=== PATIENT | female | born 1930 | race Caucasian/White ===

== ENCOUNTER → 2016-10-28 | Outpatient (CLI) | payer OTHER, MEDICAID ==
[2014-09-18 16:10] VITALS: BP 156/66
--- NOTE | 2016-10-28 16:42 | RAD ---
Barium swallow Indication: Dysphagia. Difficulty swallowing. Technique: Dynamic fluoroscopic imaging obtained during the swallowing of thin liquid barium. Findings: There was laryngeal penetration during dereck pharyngeal phase of swallowing. No edin trache al aspiration seen. Pharynx appears relatively normal, though positioning is limited due to severe kyphosis of the thora cic spine. The esophagus is dilated and tortuous with areas of narrowing in the lower thoracic esophagus and po oling of barium. The patient had difficulty tolerating the exam and was feeling nauseated and unable to continue. There is a large hiatal hernia with the majority of the fundus of the stomach in the c hest. Impression: 1. Limited study with laryngeal penetration. Speech pathology followup recommended to evaluate for p ossible clinical signs of aspiration. 2. Reflux of contrast into the nasopharynx also suggesting difficulty swallowing. Dereck pharyngeal phy sical/visual examination is recommended to exclude pharyngeal lesion 3. Tortuous thoracic esophagus and large hiatal hernia with reflux of contents into the tortuous dil ated thoracic esophagus 4. Barium pooled and series points in the lower thoracic esophagus, and areas of stricturing are sug gested. Dysfunctional esophageal motility is noted. Again, evaluation is limited, but stricture in t he lower esophagus is certainly possible. Underlying mucosal lesion is not excluded. Consider endosc opic followup. Reported By:
== END ==
LOC: RAD 10:36
PROVIDERS: ATTEND Internal Medicine Gastroenterology
DX: R13.11 Dysphagia, oral phase (principal)
CPT/HCPCS: 70370

== ENCOUNTER 2016-11-26 11:55 | Day surgery (SDC) | payer OTHER, MEDICAID ==
[2016-11-26] MEDS ORDERED: D5 LR 1000 ML 1,000 ML IV ONE (12:02)
[2016-11-26] MEDS ORDERED: DIPRIVAN VIAL 20 ML ONE (13:00)
[2016-11-26 15:09] VITALS: BP 122/61
== END 2016-11-26 13:45 ==
LOC: SURG1 11:55
PROVIDERS: ATTEND Internal Medicine Gastroenterology
PROC: 0DJ08ZZ Inspection of Upper Intestinal Tract, Via Natural or Artificial Opening Endoscopic (ICD-10-PCS; principal; 2016-11-26 15:45)
PROC: 0D757ZZ Dilation of Esophagus, Via Natural or Artificial Opening (ICD-10-PCS; principal; 2016-11-26 15:45)
PROC: 0DB68ZX Excision of Stomach, Via Natural or Artificial Opening Endoscopic, Diagnostic (ICD-10-PCS; principal; 2016-11-26 15:45)
DX: R13.19 Other dysphagia (principal); K21.9 Gastro-esophageal reflux disease without esophagitis; R93.3 Abnormal findings on diagnostic imaging of other parts of digestive tract; K22.4 Dyskinesia of esophagus; K22.2 Esophageal obstruction; K44.9 Diaphragmatic hernia without obstruction or gangrene; K29.60 Other gastritis without bleeding
CPT/HCPCS: 99100; A4217; J3490; J7120

== ENCOUNTER → 2017-04-14 | Outpatient (CLI) | payer OTHER, MEDICAID ==
[2016-11-26 12:10] VITALS: BP 147/63
--- NOTE | 2017-04-14 16:42 | VAS ---
HISTORY: Pain and edema in the left ankle Study: Left lower extremity venous vascular examination: Multiplanar ultrasonographic examination de ep venous system of the left lower extremity was performed using color and grayscale imaging. Augment ation and compression techniques utilized. Comparison: 09/15/2014 Findings: The common femoral vein, superficial femoral vein and popliteal vein demonstrate normal flow and easy compressibility. Augmentation is noted. Vascular flow was phasic. IMPRESSION: 1. No evidence of deep venous thrombosis involving the left lower extremity. 2. The deep venous thrombosis seen on the prior examination has resolved. Reported By:
== END ==
LOC: RAD 13:36
PROVIDERS: ATTEND Obstetrics & Gynecology Obstetrics
DX: M79.605 Pain in left leg (principal); M25.572 Pain in left ankle and joints of left foot; M79.89 Other specified soft tissue disorders
CPT/HCPCS: 93971

== ENCOUNTER 2018-07-17 08:10 | Inpatient (IN) ==
[~2018-07-17 08:10] MED LIST: ZOFRAN INJ 4 MG VIAL ONE
[2018-07-17] MEDS ORDERED: PEPCID 20 MG IV PREMIX* 20 MG/50 ML BAG IV SCH (09:00)
[2018-07-17] MEDS ORDERED: ZOFRAN INJ 4 MG VIAL IVP PRN (09:00)
[2018-07-17] MEDS ORDERED: NS 100 ML IV 100 ML IV ONE (09:16)
[2018-07-17] MEDS ORDERED: NS 1000 ML 1,000 ML ONE (09:16)
[2018-07-17] MEDS ORDERED: PEPCID 20 MG IV PREMIX* 20 MG/50 ML BAG IV ONE (09:17)
[2018-07-17] MEDS ORDERED: ZOFRAN INJ 4 MG VIAL ONE (09:21)
[2018-07-17] MEDS ORDERED: PROTONIX INJ 40 MG VIAL ONE (09:22)
[2018-07-17] MEDS ORDERED: INVANZ INJ 1 GM VIAL ONE (09:23)
[2018-07-17] MEDS: NS 1000 ML 1,000 ML IV SCH ×2 (09:35→22:03)
[2018-07-17] MEDS: PROTONIX INJ 40 MG VIAL IVP SCH (09:35)
[2018-07-17] MEDS: INVANZ INJ 1 GM VIAL 1 GM in NS 100 ML IV + SPIKE MINIBAG* 100 ML IV SCH (09:40)
[2018-07-17 10:14] LABS: ALBUMIN 2.7 g/dL (3.4-5.0); CALCIUM 8.9 mg/dL (8.5-10.1); CARBON DIOXIDE 22.1 mmol/L (21-32); COR CA(FOR HYPOALB) 9.9 mg/dL (8.5-10.1); CREATININE 1.77 mg/dL (0.55-1.02)
[2018-07-17 10:15] LABS: BASOPHILS # (AUTO) 0.1 X10^3/uL (0.0-0.1); BASOPHILS % (AUTO) 0.8 % (0.2-1.0); EOSINOPHILS % (AUTO) 0.3 % (0.9-2.9); HEMATOCRIT 28.1 % (36.0-47.0); HEMOGLOBIN 8.9 g/dL (12.0-16.0); LYMPHOCYTES # (AUTO) 1.8 X10^3/uL (1.3-2.9); MEAN CORPUSCULAR HGB CONC 31.9 g/dL (33.0-35.0); MEAN CORPUSCULAR VOLUME 94.3 fL (80.0-100.0); MEAN PLATELET VOLUME 9.2 fL (7.4-11.0); MONOCYTES # (AUTO) 0.4 x10^3/uL (0.3-0.8); NEUTROPHILS # (AUTO) 9.6 x10^3/uL (2.2-4.8); NEUTROPHILS % (AUTO) 80.9 % (42.0-75.0); PLATELET COUNT 597 X10^3/uL (150.0-450.0); RED BLOOD COUNT 2.98 X10^6/uL (3.5-5.4); RED CELL DISTRIBUTION WIDTH 15.1 % (11.6-16.5); WHITE BLOOD COUNT 11.9 X10^3/uL (3.6-10.0)
[2018-07-17 10:17] LABS: LACTIC ACID 3.9 mmol/L (0.4-2.0)
[2018-07-17 10:36] LABS: CREATINE KINASE MB 1.2 ng/mL (0-4.0); TOTAL PROTEIN 6.4 g/dL (6.4-8.2); TROPONIN I 0.03 ng/mL (0-1.5)
[2018-07-17] MEDS: MORPHINE SULFATE INJ 2 MG INJ IVP PRN (11:20)
[2018-07-17 11:27] LABS: BILIRUBIN,URINE NEGATIVE (NEGATIVE); BLOOD/HEMOGLOBIN,URINE 2+ (NEGATIVE); GLUCOSE, URINE NEGATIVE (NEGATIVE); KETONES,URINE 3+ (NEGATIVE); LEUKOCYTE ESTERASE ,URINE 1+ (NEGATIVE); NITRITES,URINE NEGATIVE (NEGATIVE); PROTEIN,URINE 2+ (NEGATIVE); UROBILINOGEN,URINE NORMAL (NORMAL)
[2018-07-17 11:43] LABS: APPEARANCE,URINE HAZY (CLEAR); COLOR,URINE YELLOW (YELLOW)
[2018-07-17 11:44] LABS: SQUAMOUS EPITHELIAL CELL,UR FEW /HPF (NEGATIVE)
[2018-07-17 11:45] VITALS: BMI 20.1
[2018-07-17 11:45] LABS: BACTERIA,URINE TRACE /HPF (NEGATIVE); TRANSITIONAL EPI CELLS,URINE FEW /HPF (NEGATIVE)
[2018-07-17] MEDS ORDERED: XANAX ONE (13:01)
[2018-07-17] MEDS: XANAX PO PRN (13:03)
[2018-07-17] MEDS ORDERED: VALIUM PO ONE (14:44)
[2018-07-17] MEDS ORDERED: HALDOL INJ IM PRN (14:50)
[2018-07-17] MEDS ORDERED: VALIUM ONE (15:04)
--- NOTE | 2018-07-17 15:38 | RAD ---
HISTORY: Coughing. Study: Single-view chest Comparison: 02/28/2018. Findings: There are spine stimulating electrodes present in the mid thoracic spinal canal region. Trachea is midline. Heart size is normal. 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 A large fixed hiatal hernia is present. The lungs are clear. Osseous structures are intact. IMPRESSION: No acute cardiopulmonary disease. Reported By:
--- NOTE | 2018-07-17 15:44 | RAD ---
HISTORY: Abdominal pain, renal disease Study: KUB Comparison: 03/27/2014. Findings: A spine stimulating generator is present involving the right upper gluteal region with electrodes extending into the lower thoracic spinal canal region. There is severe mid lumbar scoliosis convex to the patient's left. Severe multilevel degenerative disc disease is present with disc space narrowing and vacuum discs and marginal spondylosis at multiple levels. There are surgical clips from cholecystectomy. The bowel gas pattern is nonspecific. Calcifications are present overlying the left kidney region which may represent kidney stones or may be vascular. There is an amorphous calcification present in the right gluteal region unchanged from prior studies. This may be due to prior trauma. There is a 7.3 cm rectal fecal impaction. IMPRESSION: No evidence of bowel obstruction. 7.3 cm rectal fecal impaction. Calcifications present overlying the left kidney. This may be vascular or may represent renal stones on the left. Multiple postsurgical changes. Reported By:
[2018-07-17] MEDS: HALDOL INJ IM PRN (16:16)
[2018-07-17 17:30] LABS: HEMATOCRIT 22.9 % (36.0-47.0); HEMOGLOBIN 7.7 g/dL (12.0-16.0)
[2018-07-17] MEDS: MILK OF MAGNESIA PO SCH (22:03)
[2018-07-17] MEDS: COLACE CAP 100 MG PO SCH (22:03)
[2018-07-18] MEDS: HALDOL INJ IM PRN (01:04)
[2018-07-18 05:41] LABS: ALANINE AMINOTRANSFERASE 18 Units/L (12-78); ALBUMIN 2.3 g/dL (3.4-5.0); ALKALINE PHOSPHATASE 50 Units/L (46-116); ASPARTATE AMINO TRANSFERASE 32 Units/L (15-37); BLOOD UREA NITROGEN 67 mg/dL (7-18); CALCIUM 8.2 mg/dL (8.5-10.1); CARBON DIOXIDE 20.4 mmol/L (21-32); CHLORIDE 112 mmol/L (98-107); COR CA(FOR HYPOALB) 9.6 mg/dL (8.5-10.1); CREATININE 1.75 mg/dL (0.55-1.02); SODIUM 143 mmol/L (136-145); TOTAL PROTEIN 5.1 g/dL (6.4-8.2); eGFR NON BLACK RACES 29 (>60)
[2018-07-18 05:48] LABS: BASOPHILS # (AUTO) 0.1 X10^3/uL (0.0-0.1); BASOPHILS % (AUTO) 0.6 % (0.2-1.0); EOSINOPHILS % (AUTO) 0.2 % (0.9-2.9); LYMPHOCYTES # (AUTO) 1.6 X10^3/uL (1.3-2.9); LYMPHOCYTES % (AUTO) 13.7 % (21.0-51.0); MEAN CORPUSCULAR HEMOGLOBIN 30.3 pg (27.0-34.0); MEAN CORPUSCULAR HGB CONC 32.6 g/dL (33.0-35.0); MEAN CORPUSCULAR VOLUME 92.8 fL (80.0-100.0); MEAN PLATELET VOLUME 9.3 fL (7.4-11.0); MONOCYTES # (AUTO) 0.5 x10^3/uL (0.3-0.8); MONOCYTES % (AUTO) 4.5 % (0.0-13.0); NEUTROPHILS # (AUTO) 9.6 x10^3/uL (2.2-4.8); PLATELET COUNT 355 X10^3/uL (150.0-450.0); RED BLOOD COUNT 1.97 X10^6/uL (3.5-5.4); RED CELL DISTRIBUTION WIDTH 14.8 % (11.6-16.5); WHITE BLOOD COUNT 11.8 X10^3/uL (3.6-10.0)
[2018-07-18 05:56] LABS: HEMATOCRIT 18.3 % (36.0-47.0)
[2018-07-18] MEDS: MORPHINE SULFATE INJ 2 MG INJ IVP PRN (06:45)
--- NOTE | 2018-07-18 08:51 | DR.H&P ---
H&P - History & Physical for Day of: H&P Date: 07/17/18 - Chief Complaint Chief Complaint: COFFEE GROUND EMESIS, BLOOD IN STOOL, NAUSEA, UTI, WEAKNESS - History of Present Illness History of Present Illness: IS A 88 YEAR OLD PATIENT OF OURS WHO IS A RESIDENT OF [facility] / [facility]. SHE PRESENTED A DIRECT ADMISSION FOR COMPLAINTS OF COFFEE GROUND EMESIS, BLOOD IN STOOL, NAUSEA, AND A URINARY TRACT INFECTION. A URINE SAMPLE WAS OBTAINED ON 07/11/18 AND REVEALED GROWTH OF E.COLI. SHE WAS STARTED ON BACTRIM, BUT HAS BEEN UNABLE TO KEEP IT DOWN WITHOUT VOMITING. ON ARRIVAL, VITALS WERE 98.3-100-20-97%-123/58. LABS WERE OBTAINED. ABNORMAL LAB VALUES INCLUDE THE FOLLOWING: WBC 11.9, RBC 2.98, HGB 8.9, HCT 28.1, PLT COUNT 597, POTASSIUM 5.7, BUN 43, CREATININE 1.77, GLUCOSE 163, LACTIC ACID 3.9, ALBUMIN 2.7. INFLUENZA NEGATIVE. A URINALYSIS WAS REPEATED AND REVEALED WBC 5-10, RBC 5-10, LEUKOCYTES 1+, BACTERIA TRACE. URINE, BLOOD, AND SPUTUM CULTURES OBTAINED. A CHEST XRAY WAS OBTAINED AND REVEALED: NO CARDIOPULMONARY DISEASE. A KUB WAS OBTAINED AND REVEALED: 7.3 cm rectal fecal impaction. Calcifications present overlying the left kidney. This may be vascular or may represent renal stones on the left. Multiple postsurgical changes. EKG REVEALED: SINUS TACHYCARDIA WITH HR 102. SHE WAS STARTED ON NORMAL SALINE AT 75ML/HR, PEPCID IV, PROTONIX IV, AND INVANZ 1GM IV DAILY. WE PLAN TO OBTAIN STOOL STUDIES AND GASTROCCULT. OTHERWISE, WE WILL FOLLOW UP WITH AM LABS AND CONTINUE TO MONITOR. - Past Medical History Past Medical History: Arthritis, Depression, GERD, Gout, Hypertension - Past Surgical History Surgical History: Unknown - Family History Family Medical History: Coronary Artery Disease, Hypertension - Social History Does patient currently use any type of tobacco product: No Have you used tobacco products in the last 12 months: No Type of Tobacco Use: None Does any household member use tobacco: No Alcohol Use: None Drug Use: None - Medications Home Medications: iodine Allergy (Verified 03/01/18 14:56) meloxicam [From Mobic] Allergy (Verified 03/01/18 14:56) penicillin G Allergy (Verified 03/01/18 14:56) prochlorperazine [From Compazine] Allergy (Verified 03/01/18 14:56) Sulfa (Sulfonamide Antibiotics) [SULFA] Allergy (Verified 03/01/18 14:56) CONTINUE taking the following medications alprazolam [Xanax] 0.25 mg PO HS 07/17/18 [History] amino acids-protein hydrolys [Pro-Stat AWC] 1 packet PO BID 07/17/18 [History] amitriptyline 10 mg PO HS 07/17/18 [History] jqyg-narH-eexgaht-FOS-bromeln [UTI-Stat] 30 ml PO BID 07/17/18 [History] diclofenac sodium [Voltaren] 1 applic TOPICAL TID 07/17/18 [History] docusate sodium [Colace] 100 mg PO BID 07/17/18 [History] ertapenem [Invanz] 1 g IV DAILY 07/17/18 [History] fenofibrate 160 mg PO DAILY 07/17/18 [History] fluticasone [Flonase Allergy Relief] 2 spray INTRANASAL BID 07/17/18 [History] furosemide [Lasix] 20 mg PO DAILY 07/17/18 [History] gabapentin 100 mg PO .0900, 1200 07/17/18 [History] hydrocodone-acetaminophen [Ideal] 1 tab PO BID PRN 07/17/18 [History] iron-folic acid-mv, min cmb#15 [Hemocyte-Plus] 1 tab PO DAILY 07/17/18 [History] lactobacillus combination no.4 [Probiotic] 2 cap PO DAILY 07/17/18 [History] lisinopril 2.5 mg PO DAILY 07/17/18 [History] meclizine 12.5 mg PO DAILY PRN 07/17/18 [History] melatonin 5 mg PO HS 07/17/18 [History] metoclopramide HCl 10 ml PO ACHS 07/17/18 [History] montelukast [Singulair] 10 mg PO DAILY 07/17/18 [History] ondansetron HCl [Zofran] 4 mg PO Q4H PRN 07/17/18 [History] phenyleph-min oil-petrolatum [Preparation H] 1 applic [place] Q6H PRN 07/17/18 [History] polyethylene glycol 3350 [Miralax] 17 g PO DAILY 07/17/18 [History] pramipexole [Mirapex] 1 mg PO BID 07/17/18 [History] warfarin 1 mg PO ..3XW 07/17/18 [History] - Review of Systems Constitutional: See HPI, Weakness, Malaise Eyes: No Symptoms Reported ENT: No Symptoms Reported Respiratory: Shortness of Breath, SOB with Excertion Gastrointestinal: See HPI, Nausea, Vomiting, Abdominal Pain, Melena Genitourinary: No Symptoms Reported Musculoskeletal: No Symptoms Reported Skin: No Symptoms Reported Neurological: Weakness - Physical Exam Vital Signs: Temperature 97.9 F Pulse Rate [Left Brachial] 98 Pulse Rate [Right Brachial] 100 Respiratory Rate 18 Blood Pressure [Left Arm] 112/53 Blood Pressure [Right Arm] 123/58 Blood Pressure 147/63 O2 Sat by Pulse Oximetry 94 Oriented: Normal Eyes: Normal Ear: Normal Nose: Normal Throat: Normal Respiratory: Diminished Throughout Cardiovascular: Tachycardia : Normal Auscultation: Bowel Sounds: Normal Palpation: Normal Tenderness: Diffuse. negative: Rebound, Guarding, Rigidity Skin: Decreased Turgur Musculoskeletal: Normal Psychiatric: Normal Mood Description: Calm Affect: Normal Speech Pattern: Clear - Assessment/Plan (1) UTI (urinary tract infection) Qualifiers: Urinary tract infection type: acute cystitis Hematuria presence: without hematuria Qualified Code(s): N30.00 - Acute cystitis without hematuria Status: Acute Plan: INVANZ 1GM IV DAILY, NORMMAL SALINE AT 75ML/HR, CONTINUE TO MONITOR (2) Dehydration Status: Acute Plan: NORMAL SALINE AT 75ML/HR, CONTINUE TO MONITOR (3) Generalized weakness Status: Acute (4) Blood in stool Status: Acute Plan: STOOL STUDIES, MONITOR H&H (5) Anemia Qualifiers: Anemia type: iron deficiency Iron deficiency anemia type: chronic blood loss Qualified Code(s): D50.0 - Iron deficiency anemia secondary to blood loss (chronic) Status: Acute Plan: MONITOR H&H - Allergies Allergies/Adverse Reactions: Allergies Allergy/AdvReac Type Severity Reaction Status Date / Time iodine Allergy Verified 03/01/18 14:56 meloxicam [From Mobic] Allergy Verified 03/01/18 14:56 penicillin G Allergy Verified 03/01/18 14:56 prochlorperazine Allergy Verified 03/01/18 14:56 [From Compazine] Sulfa (Sulfonamide Allergy Verified 03/01/18 14:56 Antibiotics) [SULFA]
[2018-07-18] MEDS: INVANZ INJ 1 GM VIAL 1 GM in NS 100 ML IV + SPIKE MINIBAG* 100 ML IV SCH (08:59)
[2018-07-18] MEDS: COLACE CAP 100 MG PO SCH ×2 (09:00→20:08)
[2018-07-18] MEDS: MILK OF MAGNESIA PO SCH ×4 (09:01→20:08)
[2018-07-18] MEDS: MIRALAX POWDER (1 DOSE 17 G) PO SCH (09:01)
[2018-07-18] MEDS: PEPCID 20 MG IV PREMIX* 20 MG/50 ML BAG IV SCH (09:01)
[2018-07-18] MEDS: PROTONIX INJ 40 MG VIAL IVP SCH (09:01)
[2018-07-18] MEDS ORDERED: AQUA-MEPHYTON ADULT INJ SC ONE (10:25)
[2018-07-18] MEDS ORDERED: BUTT CREAM (COMPOUND) ONE (10:30)
[2018-07-18] MEDS: NS 1000 ML 1,000 ML IV SCH ×2 (10:46→13:30)
[2018-07-18] MEDS ORDERED: BUTT CREAM (COMPOUND) TOP PRN (10:47)
[2018-07-18] MEDS ORDERED: TYLENOL 325 MG TAB PO PRN (10:52)
[2018-07-18] MEDS ORDERED: NS 500 ML IV 500 ML IV ONE (10:52)
[2018-07-18] MEDS ORDERED: LASIX IVP ONE (10:56)
[2018-07-18] MEDS ORDERED: PHARMACY CONSULT - DOSE _____ XX SCH (11:00)
[2018-07-18] MEDS: BENADRYL INJ 50 MG VIAL IVP PRN (11:18)
[2018-07-18] MEDS ORDERED: ZITHROMAX INJ 500 MG VIAL 500 MG in NS 250 ML IV 250 ML IV SCH (12:00)
[2018-07-18] MEDS: PROTONIX INJ 40 MG VIAL 80 MG in NS 100 ML IV 80 ML IV SCH ×3 (12:34→22:11)
[2018-07-18] MEDS ORDERED: LASIX ONE (12:46)
[2018-07-18 19:57] LABS: HEMATOCRIT 28.3 % (36.0-47.0); HEMOGLOBIN 9.4 g/dL (12.0-16.0)
[2018-07-18] MEDS: XANAX PO PRN (21:36)
[2018-07-19] MEDS: PROTONIX INJ 40 MG VIAL 80 MG in NS 100 ML IV 80 ML IV SCH ×5 (02:51→21:55)
[2018-07-19] MEDS: NS 1000 ML 1,000 ML IV SCH ×2 (05:26→18:15)
[2018-07-19 06:22] LABS: BASOPHILS # (AUTO) 0.1 X10^3/uL (0.0-0.1); BASOPHILS % (AUTO) 0.8 % (0.2-1.0); EOSINOPHILS # (AUTO) 0.3 x10^3/uL (0.0-0.2); EOSINOPHILS % (AUTO) 2.8 % (0.9-2.9); HEMATOCRIT 28.1 % (36.0-47.0); LYMPHOCYTES # (AUTO) 1.7 X10^3/uL (1.3-2.9); LYMPHOCYTES % (AUTO) 19.5 % (21.0-51.0); MEAN CORPUSCULAR HEMOGLOBIN 30.8 pg (27.0-34.0); MEAN CORPUSCULAR HGB CONC 33.9 g/dL (33.0-35.0); MEAN CORPUSCULAR VOLUME 90.9 fL (80.0-100.0); MEAN PLATELET VOLUME 8.8 fL (7.4-11.0); MONOCYTES # (AUTO) 0.4 x10^3/uL (0.3-0.8); NEUTROPHILS # (AUTO) 6.4 x10^3/uL (2.2-4.8); NEUTROPHILS % (AUTO) 71.9 % (42.0-75.0); PLATELET COUNT 256 X10^3/uL (150.0-450.0); RED CELL DISTRIBUTION WIDTH 14.3 % (11.6-16.5)
[2018-07-19 06:23] LABS: HEMOGLOBIN 9.5 g/dL (12.0-16.0)
[2018-07-19 06:35] LABS: ALBUMIN 2.3 g/dL (3.4-5.0); BLOOD UREA NITROGEN 50 mg/dL (7-18); CALCIUM 8.3 mg/dL (8.5-10.1); CARBON DIOXIDE 23.6 mmol/L (21-32); CHLORIDE 112 mmol/L (98-107); COR CA(FOR HYPOALB) 9.7 mg/dL (8.5-10.1); CREATININE 1.33 mg/dL (0.55-1.02); SODIUM 144 mmol/L (136-145); eGFR NON BLACK RACES 40 (>60)
[2018-07-19 07:12] LABS: ALANINE AMINOTRANSFERASE 16 Units/L (12-78); ALKALINE PHOSPHATASE 50 Units/L (46-116); ASPARTATE AMINO TRANSFERASE 46 Units/L (15-37); TOTAL PROTEIN 5.2 g/dL (6.4-8.2)
[2018-07-19] MEDS ORDERED: ANTIVERT TAB 25 MG PO PRN (08:09)
[2018-07-19] MEDS ORDERED: PREPARATION H OINT PR PRN (08:09)
[2018-07-19] MEDS: ZITHROMAX INJ 500 MG VIAL 250 MG in NS 250 ML IV 250 ML IV SCH (08:19)
[2018-07-19] MEDS ORDERED: NS 250 ML IV 250 ML IV ONE (08:24)
[2018-07-19] MEDS ORDERED: TRICOR TAB 160 MG PO SCH (09:00)
[2018-07-19] MEDS ORDERED: MIRALAX POWDER (255 GRAMS BTL) PO SCH (09:00)
[2018-07-19] MEDS ORDERED: DURAGESIC 100 mcg/HR PATCH TD SCH (09:00)
[2018-07-19] MEDS: COLACE CAP 100 MG PO SCH ×2 (09:01→21:05)
[2018-07-19] MEDS: NS 250 ML IV 250 ML IV SCH (09:01)
[2018-07-19] MEDS: PEPCID 20 MG IV PREMIX* 20 MG/50 ML BAG IV SCH (09:05)
[2018-07-19] MEDS: INVANZ INJ 1 GM VIAL 1 GM in NS 100 ML IV + SPIKE MINIBAG* 100 ML IV SCH (09:08)
[2018-07-19] MEDS: HEMOCYTE-PLUS PO SCH (09:09)
[2018-07-19] MEDS: SINGULAIR TAB 10 MG PO SCH (09:09)
[2018-07-19] MEDS: ZESTRIL TAB 5 MG PO SCH (09:09)
[2018-07-19] MEDS ORDERED: REGLAN SYRUP 10 MG UDC ONE (09:20)
[2018-07-19] MEDS: VSL#3 PO SCH (09:22)
[2018-07-19] MEDS: MIRAPEX TAB 1 MG PO SCH ×2 (09:22→21:05)
[2018-07-19] MEDS: MILK OF MAGNESIA PO SCH ×4 (09:24→21:02)
[2018-07-19] MEDS: MIRALAX POWDER (1 DOSE 17 G) PO SCH (09:24)
[2018-07-19] MEDS: PATIENT'S HOME MEDICATION (Cran-Vitc-Mannose-Fos-Bromeln [Uti-Stat] 30 ML) PO SCH ×2 (10:02→21:02)
[2018-07-19] MEDS: AMINO ACIDS PROTEIN HYDROLYS PO SCH ×2 (10:02→21:01)
[2018-07-19] MEDS: FLONASE NASAL SPRAY ENOSTRIL SCH ×2 (10:24→21:06)
[2018-07-19] MEDS: MICRO K EXTEN CAP 10 MEQ PO SCH ×2 (10:24→10:28)
[2018-07-19] MEDS: EXELON PATCH 4.6 MG/24 HR TD SCH (10:25)
[2018-07-19] MEDS ORDERED: AQUA-MEPHYTON ADULT INJ SC ONE (10:28)
[2018-07-19] MEDS: REGLAN SYRUP 10 MG UDC PO SCH ×3 (10:30→21:03)
--- NOTE | 2018-07-19 10:46 | DR.CONSULT ---
Consult - Consultation for Day of: Date: 07/19/18 - Chief Complaint Chief Complaint: Patient referred for GI Bleed. Patient had coffee ground emesis at senior care and melena. - History of Present Illness History of Present Illness: Patient is a 88 yo female who was referred for GI Bleed. Patient with no comgplaints at this time. Patient had coffee ground emesis at senior care as well as nausea, vomiting and melena. Pateint noted to have epigastric tenderness. Last EGD was 11/26/16 which showed esophageal spasm with very tortuous esophagus with dysmotility, distal esophageal stricture, hiatal hernia and antral gastritis. Last colon was 06/2008 which showed sigmoid diverticulosis and internal hemorrhoids. Pateint Hgb was 6.0 2 units of PRBC given now 9.5, Hct 28.1, INR 1.76 down from 4.52, BUN 50, Creatinine 1.33, Hemoccult positive, Camplybacter positive. - Past Medical History Past Medical History: Anemia, Arthritis, Depression, GERD, Gout, Hypertension - Past Surgical History Surgical History: Hysterectomy Additional Surgical History: back surgery, neuro stimulator in place in back - Family History Family Medical History: Coronary Artery Disease, Hypertension - Social History Does patient currently use any type of tobacco product: No Have you used tobacco products in the last 12 months: No Type of Tobacco Use: None Does any household member use tobacco: No Alcohol Use: None Drug Use: None - Medications Home Medications: iodine Allergy (Verified 03/01/18 14:56) meloxicam [From Mobic] Allergy (Verified 03/01/18 14:56) penicillin G Allergy (Verified 03/01/18 14:56) prochlorperazine [From Compazine] Allergy (Verified 03/01/18 14:56) Sulfa (Sulfonamide Antibiotics) [SULFA] Allergy (Verified 03/01/18 14:56) CONTINUE taking the following medications alprazolam [Xanax] 0.25 mg PO HS 07/17/18 [History] amino acids-protein hydrolys [Pro-Stat AWC] 1 packet PO BID 07/17/18 [History] amitriptyline 10 mg PO HS 07/17/18 [History] gouk-hkhT-cashhwq-FOS-bromeln [UTI-Stat] 30 ml PO BID 07/17/18 [History] diclofenac sodium [Voltaren] 1 applic TOPICAL TID 07/17/18 [History] docusate sodium [Colace] 100 mg PO BID 07/17/18 [History] ertapenem [Invanz] 1 g IV DAILY 07/17/18 [History] fenofibrate 160 mg PO DAILY 07/17/18 [History] fluticasone [Flonase Allergy Relief] 2 spray INTRANASAL BID 07/17/18 [History] furosemide [Lasix] 20 mg PO DAILY 07/17/18 [History] gabapentin 100 mg PO .0900, 1200 07/17/18 [History] hydrocodone-acetaminophen [Stow] 1 tab PO BID PRN 07/17/18 [History] iron-folic acid-mv, min cmb#15 [Hemocyte-Plus] 1 tab PO DAILY 07/17/18 [History] lactobacillus combination no.4 [Probiotic] 2 cap PO DAILY 07/17/18 [History] lisinopril 2.5 mg PO DAILY 07/17/18 [History] meclizine 12.5 mg PO DAILY PRN 07/17/18 [History] melatonin 5 mg PO HS 07/17/18 [History] metoclopramide HCl 10 ml PO ACHS 07/17/18 [History] montelukast [Singulair] 10 mg PO DAILY 07/17/18 [History] ondansetron HCl [Zofran] 4 mg PO Q4H PRN 07/17/18 [History] phenyleph-min oil-petrolatum [Preparation H] 1 applic SD Q6H PRN 07/17/18 [History] polyethylene glycol 3350 [Miralax] 17 g PO DAILY 07/17/18 [History] pramipexole [Mirapex] 1 mg PO BID 07/17/18 [History] warfarin 1 mg PO ..3XW 07/17/18 [History] - Review of Systems Constitutional: Weakness Eyes: No Symptoms Reported ENT: No Symptoms Reported Respiratory: No Symptoms Reported Cardiovascular: No Symptoms Reported Gastrointestinal: Nausea, Vomiting, Melena, Other (coffeeground emesis) Genitourinary: No Symptoms Reported Musculoskeletal: No Symptoms Reported Skin: No Symptoms Reported Neurological: No Symptoms Reported - Physical Exam Vital Signs: Temperature 99.7 F Pulse Rate [Apical] 76 Pulse Rate [Left Brachial] 100 Pulse Rate [Right Brachial] 100 Respiratory Rate 17 Blood Pressure [Left Arm] 125/56 Blood Pressure [Right Arm] 123/58 Blood Pressure 147/63 O2 Sat by Pulse Oximetry 97 Oriented: Not Oriented Eyes: Normal Ear: Normal Nose: Normal Throat: Normal Respiratory: Clear Throughout Cardiovascular: Normal : Normal Auscultation: Bowel Sounds: Normal Palpation: Normal, Other (no distention). negative: Spleen Enlarged, Liver Enl arged, Mass Pulsatile Tenderness: LUQ, Epigastric Skin: Normal Musculoskeletal: Normal Psychiatric: Normal Mood Description: Calm Affect: Normal Speech Pattern: Clear, Appropriate - Plan Plan: Assessment. 1. Anemia, Coffee Ground Emesis, Melena r/o upper GI Bleed, meryl mcknight tear. Plan. 1. EGD today, keep NPO, give vitamin k SQ and 1 unit of FFP, Cont protonix IV and Monitor Hgb, Transfuse as needed. Plan reviewed with Dr. Gutierrez - Allergies Allergies/Adverse Reactions: Allergies Allergy/AdvReac Type Severity Reaction Status Date / Time iodine Allergy Verified 03/01/18 14:56 meloxicam [From Mobic] Allergy Verified 03/01/18 14:56 penicillin G Allergy Verified 03/01/18 14:56 prochlorperazine Allergy Verified 03/01/18 14:56 [From Compazine] Sulfa (Sulfonamide Allergy Verified 03/01/18 14:56 Antibiotics) [SULFA]
[2018-07-19] MEDS ORDERED: AQUA-MEPHYTON ADULT INJ ONE (10:50)
[2018-07-19] MEDS: VOLTAREN 1 % GEL MULTI DOSE TUBE TOP SCH ×2 (13:44→21:06)
[2018-07-19] MEDS ORDERED: STERILE WATER IRRIGATION IR ONE (14:13)
[2018-07-19] MEDS ORDERED: LR 1000 ML IV 1,000 ML IV ONE (14:25)
[2018-07-19] MEDS ORDERED: DIPRIVAN VIAL 10 ML ONE (14:30)
--- NOTE | 2018-07-19 16:18 | RAD ---
HISTORY: Coughing, central line placement. Study: Single-view chest, done portably Comparison: 07/17/2018. Findings: Left-sided subclavian line is been placed with the tip in the lower SVC. No pneumothorax is seen. There are changes of lower cervical spine surgery with metallic plate and screws present. Lower thoracic spinal canal stimulating electrodes are again seen. The trachea is midline. Heart size is normal. 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 Increased interstitial markings are present involving both lungs. Findings may represent COPD. No consolidation or pleural fluid is seen. Osseous structures displayed no acute abnormality. The hiatal hernia seen on the prior studies is not readily apparent on the current study. IMPRESSION: Placement of left-sided subclavian line without pneumothorax. The catheter tip is in the lower SVC. Findings likely representing COPD with increased interstitial markings bilaterally. No consolidation or fluid is seen. Reported By:
[2018-07-19 17:18] LABS: HEMATOCRIT 23.9 % (36.0-47.0); HEMOGLOBIN 8.2 g/dL (12.0-16.0)
[2018-07-19] MEDS: ELAVIL PO SCH (21:05)
[2018-07-19] MEDS: NEURONTIN CAP 300 MG PO SCH (21:05)
[2018-07-19] MEDS: NEURONTIN CAP 100 MG PO SCH (21:05)
[2018-07-19] MEDS: BENADRYL INJ 50 MG VIAL IVP PRN (21:05)
[2018-07-19] MEDS: PATIENT'S HOME MEDICATION (Melatonin [Melatonin] 5 MG) PO SCH (21:06)
[2018-07-19] MEDS: NORCO 5/325 MG TAB PO PRN (21:08)
[2018-07-20] MEDS: NS 250 ML IV 250 ML IV SCH (01:54)
[2018-07-20] MEDS: NS 1000 ML 1,000 ML IV SCH ×3 (01:55→18:27)
[2018-07-20] MEDS: PROTONIX INJ 40 MG VIAL 80 MG in NS 100 ML IV 80 ML IV SCH ×4 (05:47→18:27)
[2018-07-20] MEDS: VOLTAREN 1 % GEL MULTI DOSE TUBE TOP SCH ×3 (05:47→21:30)
[2018-07-20] MEDS: REGLAN SYRUP 10 MG UDC PO SCH ×4 (05:48→20:32)
[2018-07-20 06:16] LABS: BASOPHILS % (AUTO) 0.7 % (0.2-1.0); EOSINOPHILS # (AUTO) 0.2 x10^3/uL (0.0-0.2); HEMATOCRIT 26.2 % (36.0-47.0); HEMOGLOBIN 8.8 g/dL (12.0-16.0); LYMPHOCYTES # (AUTO) 1.1 X10^3/uL (1.3-2.9); LYMPHOCYTES % (AUTO) 20.9 % (21.0-51.0); MEAN CORPUSCULAR HEMOGLOBIN 31.1 pg (27.0-34.0); MEAN CORPUSCULAR HGB CONC 33.7 g/dL (33.0-35.0); MEAN CORPUSCULAR VOLUME 92.2 fL (80.0-100.0); MEAN PLATELET VOLUME 8.3 fL (7.4-11.0); MONOCYTES # (AUTO) 0.3 x10^3/uL (0.3-0.8); MONOCYTES % (AUTO) 6.5 % (0.0-13.0); NEUTROPHILS # (AUTO) 3.7 x10^3/uL (2.2-4.8); NEUTROPHILS % (AUTO) 67.9 % (42.0-75.0); PLATELET COUNT 257 X10^3/uL (150.0-450.0); RED BLOOD COUNT 2.84 X10^6/uL (3.5-5.4); RED CELL DISTRIBUTION WIDTH 14.5 % (11.6-16.5); WHITE BLOOD COUNT 5.4 X10^3/uL (3.6-10.0)
[2018-07-20 06:48] LABS: ALANINE AMINOTRANSFERASE 19 Units/L (12-78); ALBUMIN 2.4 g/dL (3.4-5.0); ALKALINE PHOSPHATASE 52 Units/L (46-116); ASPARTATE AMINO TRANSFERASE 46 Units/L (15-37); BLOOD UREA NITROGEN 25 mg/dL (7-18); CALCIUM 8.3 mg/dL (8.5-10.1); CHLORIDE 114 mmol/L (98-107); COR CA(FOR HYPOALB) 9.6 mg/dL (8.5-10.1); CREATININE 0.92 mg/dL (0.55-1.02); SODIUM 147 mmol/L (136-145); TOTAL PROTEIN 5.2 g/dL (6.4-8.2); eGFR NON BLACK RACES > 60 (>60)
[2018-07-20] MEDS: EXELON PATCH 4.6 MG/24 HR TD SCH (08:42)
[2018-07-20] MEDS: PATIENT'S HOME MEDICATION (Cran-Vitc-Mannose-Fos-Bromeln [Uti-Stat] 30 ML) PO SCH ×2 (08:42→20:33)
[2018-07-20] MEDS: AMINO ACIDS PROTEIN HYDROLYS PO SCH ×2 (08:42→20:32)
[2018-07-20] MEDS: COLACE CAP 100 MG PO SCH ×2 (08:42→20:31)
[2018-07-20] MEDS: INVANZ INJ 1 GM VIAL 1 GM in NS 100 ML IV + SPIKE MINIBAG* 100 ML IV SCH (08:43)
[2018-07-20] MEDS: HEMOCYTE-PLUS PO SCH (08:43)
[2018-07-20] MEDS: MICRO K EXTEN CAP 10 MEQ PO SCH (08:43)
[2018-07-20] MEDS: FLONASE NASAL SPRAY ENOSTRIL SCH ×2 (08:43→20:33)
[2018-07-20] MEDS: MILK OF MAGNESIA PO SCH ×4 (08:43→20:32)
[2018-07-20] MEDS: SINGULAIR TAB 10 MG PO SCH (08:44)
[2018-07-20] MEDS: PEPCID 20 MG IV PREMIX* 20 MG/50 ML BAG IV SCH (08:44)
[2018-07-20] MEDS: VSL#3 PO SCH (08:44)
[2018-07-20] MEDS: MIRALAX POWDER (1 DOSE 17 G) PO SCH (08:44)
[2018-07-20] MEDS: MIRAPEX TAB 1 MG PO SCH ×2 (08:44→20:31)
[2018-07-20] MEDS: ZESTRIL TAB 5 MG PO SCH (08:45)
[2018-07-20] MEDS: ZITHROMAX INJ 500 MG VIAL 250 MG in NS 250 ML IV 250 ML IV SCH (08:45)
--- NOTE | 2018-07-20 19:24 | PCM.PROG ---
Progress Note - Progress Note for Day of Date of Exam: 07/18/18 - Subjective Subjective: WAS ADMITTED FOR UTI, DEHYDRATION, BLOOD IN STOOL, ANEMIA, AND GENERALIZED WEAKNESS. TODAY, SHE IS ALERT AND ORIENTED, LYING IN BED ON MORNING ROUNDS. SHE CONTINUES WITH COMPLAINTS OF WEAKNESS AND ABDOMINAL PAIN THIS MORNING. SHE IS PALE IN COLOR. HER VITALS THIS MORNING ARE 97.7-100 -18-95%-103/57. LABS WERE OBTAINED. ABNORMAL LAB VALUES INCLUDE THE FOLLOWING: WC 11.8, RBC 1.97, HGB 6.0, HCT 18.3, INR 4.52, CHLORIDE 112, CARBON DIOXIDE 20.4, BUN 67, CREATININE 1.75, GLUCOSE 100, CALCIUM 8.2, TOTAL PROTEIN 5.1, ALBUMIN 2.3. STOOL POSITIVE FOR OCCULT BLOOD AND CAMPYLOBACTER. A KUB WAS OBTAINED ON ADMISSION AND REVEALED: No evidence of bowel obstruction. 7.3 cm rectal fecal impaction. Calcifications present overlying the left kidney. This may be vascular or may represent renal stones on the left. Multiple postsurgical changes. TODAY, WE WILL TRANSFUSE 2 UNITS OF PACKED RED BLOOD CELLS, START AZITHROMYCIN 250MG IV DAILY FOR TX OF CAMPY, START A PROTONIX DRIP, AND ADMINISTER VITAMIN K 10 UNITS. WE WILL TRANSFER HER TO THE INTENSIVE CARE UNIT AND CONSULT GI. OTHERWISE, WE WILL FOLLOW UP WITH AM LABS AND CONTINUE TO MONITOR. - Past Medical Family Social History Past Med/Fam/Surg Hx: No changes since H&P Allergies: Allergies iodine Allergy (Verified 03/01/18 14:56) meloxicam [From Mobic] Allergy (Verified 03/01/18 14:56) penicillin G Allergy (Verified 03/01/18 14:56) prochlorperazine [From Compazine] Allergy (Verified 03/01/18 14:56) Sulfa (Sulfonamide Antibiotics) [SULFA] Allergy (Verified 03/01/18 14:56) - Review of Systems ROS: No change since H&P - Vital Signs and I&O's Vital Signs: Temperature 97.8 F Pulse Rate [Apical] 72 Pulse Rate [Left Brachial] 100 Pulse Rate [Right Brachial] 100 Pulse Rate 70 Respiratory Rate 21 Blood Pressure [Left Arm] 132/61 Blood Pressure [Right Arm] 141/60 Blood Pressure 119/58 O2 Sat by Pulse Oximetry 99 Intake and Output: Intake & Output 07/18/18 07/19/18 07/20/18 07/21/18 11:59 11:59 11:59 11:59 Intake Total 1534 / 1534 1937 / 1937 2382 / 2382 1460 / 1460 Output Total 1000 / 1000 2625 / 2625 1300 / 1300 700 / 700 Balance 534 / 534 -688 / -688 1082 / 1082 760 / 760 - Physical Exam Oriented: Normal Eyes: Normal Ear: Normal Nose: Normal Throat: Normal Cardiovascular: Tachycardia : Normal Auscultation: Bowel Sounds: Normal Palpation: Normal Tenderness: Diffuse. negative: Rebound, Guarding, Rigidity Skin: Decreased Turgur Musculoskeletal: Normal Psychiatric: Normal Mood Description: Calm Affect: Normal Speech Pattern: Clear, Appropriate - Laboratory and Diagnostics Result Diagrams: 07/20/18 05:55 07/20/18 05:55 Labs: 07/17/18 11:18 Sputum - Expectorated Sputum Sputum Culture - Final Methicillin Resis Staph Aureus 07/17/18 11:18 Sputum - Expectorated Sputum - Final 07/18/18 01:05 Stool Stool Culture - Final 07/18/18 01:05 Stool - Final 07/17/18 11:02 Urine,Catheterized Urine Culture - Final 07/17/18 09:45 Blood Blood Culture - Preliminary 07/17/18 09:38 Blood Blood Culture - Preliminary Laboratory WBC 5.4 X10^3/uL (3.6-10.0) 07/20/18 05:55 RBC 2.84 X10^6/uL (3.5-5.4) L 07/20/18 05:55 Hgb 8.8 g/dL (12.0-16.0) L 07/20/18 05:55 Hct 26.2 % (36.0-47.0) L 07/20/18 05:55 MCV 92.2 fL (80.0-100.0) 07/20/18 05:55 MCH 31.1 pg (27.0-34.0) 07/20/18 05:55 MCHC 33.7 g/dL (33.0-35.0) 07/20/18 05:55 RDW 14.5 % (11.6-16.5) 07/20/18 05:55 Plt Count 257 X10^3/uL (150.0-450.0) 07/20/18 05:55 MPV 8.3 fL (7.4-11.0) 07/20/18 05:55 Neut % (Auto) 67.9 % (42.0-75.0) 07/20/18 05:55 Lymph % (Auto) 20.9 % (21.0-51.0) L 07/20/18 05:55 [place] % (Auto) 6.5 % (0.0-13.0) 07/20/18 05:55 Eos % (Auto) 4.0 % (0.9-2.9) H 07/20/18 05:55 Baso % (Auto) 0.7 % (0.2-1.0) 07/20/18 05:55 Neut # (Auto) 3.7 x10^3/uL (2.2-4.8) 07/20/18 05:55 Lymph # (Auto) 1.1 X10^3/uL (1.3-2.9) L 07/20/18 05:55 [place] # (Auto) 0.3 x10^3/uL (0.3-0.8) 07/20/18 05:55 Eos # (Auto) 0.2 x10^3/uL (0.0-0.2) 07/20/18 05:55 Baso # (Auto) 0.0 X10^3/uL (0.0-0.1) 07/20/18 05:55 Absolute Nucleated RBC 0.1 /100WBC 07/20/18 05:55 INR Target Range - 07/20/18 05:55 INR 1.16 (0.8-1.3) 07/20/18 05:55 Sodium 147 mmol/L (136-145) H 07/20/18 05:55 Corrected Sodium TNP 07/20/18 05:55 Potassium 3.7 mmol/L (3.5-5.1) 07/20/18 05:55 Chloride 114 mmol/L (98-107) H 07/20/18 05:55 Carbon Dioxide 23.0 mmol/L (21-32) 07/20/18 05:55 BUN 25 mg/dL (7-18) H 07/20/18 05:55 Creatinine 0.92 mg/dL (0.55-1.02) 07/20/18 05:55 Est GFR (MDRD) Af Amer > 60 (>60) 07/20/18 05:55 Est GFR (MDRD) Non-Af > 60 (>60) 07/20/18 05:55 Glucose 86 mg/dL (65-99) 07/20/18 05:55 Lactic Acid 1.0 mmol/L (0.4-2.0) 07/17/18 17:00 Calcium 8.3 mg/dL (8.5-10.1) L 07/20/18 05:55 Corrected Calcium 9.6 mg/dL (8.5-10.1) 07/20/18 05:55 Total Bilirubin 0.30 mg/dL (0.2-1.0) 07/20/18 05:55 AST 46 Units/L (15-37) H 07/20/18 05:55 ALT 19 Units/L (12-78) 07/20/18 05:55 Alkaline Phosphatase 52 Units/L (46-116) 07/20/18 05:55 Creatine Kinase 59 Units/L (26-192) 07/17/18 09:45 CK-MB (CK-2) 1.2 ng/mL (0-4.0) 07/17/18 09:45 CK/CKMB % Calc 2.0 % (<4) 07/17/18 09:45 Troponin I 0.03 ng/mL (0-1.5) 07/17/18 09:45 Total Protein 5.2 g/dL (6.4-8.2) L 07/20/18 05:55 Albumin 2.4 g/dL (3.4-5.0) L 07/20/18 05:55 Globulin 2.8 g/dL (2.5-4.5) 07/20/18 05:55 Albumin/Globulin Ratio 0.9 Ratio (1.1-2.1) L 07/20/18 05:55 Specimen Type Catherized urine 07/17/18 11:02 Urine Color Yellow (YELLOW) 07/17/18 11:02 Urine Appearance Hazy (CLEAR) 07/17/18 11:02 Urine pH 6.0 (5.0 - 8.0) 07/17/18 11:02 Ur Specific [place] 1.010 (1.000-1.030) 07/17/18 11:02 Urine Protein 2+ (NEGATIVE) 07/17/18 11:02 Urine Glucose (UA) Negative (NEGATIVE) 07/17/18 11:02 Urine Ketones 3+ (NEGATIVE) 07/17/18 11:02 Urine Occult Blood 2+ (NEGATIVE) 07/17/18 11:02 Urine Nitrite Negative (NEGATIVE) 07/17/18 11:02 Urine Bilirubin Negative (NEGATIVE) 07/17/18 11:02 Urine Urobilinogen Normal (NORMAL) 07/17/18 11:02 Ur Leukocyte Esterase 1+ (NEGATIVE) 07/17/18 11:02 Urine RBC 5-10 /HPF (NONE SEEN) 07/17/18 11:02 Urine WBC 5-10 /HPF (NONE SEEN) 07/17/18 11:02 Ur Squamous Epith Cells Few /HPF (NEGATIVE) 07/17/18 11:02 Ur Transition Epith Cell Few /HPF (NEGATIVE) 07/17/18 11:02 Urine Bacteria Trace /HPF (NEGATIVE) 07/17/18 11:02 Ur Culture Indicated? Yes/culture set up 07/17/18 11:02 Stool Description 50g,black,liquid 07/18/18 01:05 Stl Occult Blood (IFOB) Positive (NEGATIVE) A 07/18/18 01:05 Stl C. diff Tox B Gene Negative (NEGATIVE) 07/18/18 01:05 Stl C. diff [id number] Negative (NEGATIVE) 07/18/18 01:05 Influenza Type A (PCR) Negative (NEGATIVE) 07/17/18 16:27 Influenza Type B (PCR) Negative (NEGATIVE) 07/17/18 16:27 Blood Type O POSITIVE 07/17/18 17:00 Antibody Screen Negative 07/17/18 17:00 Crossmatch See Detail 07/17/18 17:00 - Plan (1) UTI (urinary tract infection) Status: Acute Qualifiers: Urinary tract infection type: acute cystitis Hematuria presence: without h ematuria Qualified Code(s): N30.00 - Acute cystitis without hematuria Plan: INVANZ 1GM IV DAILY, NORMAL SALINE AT 75ML/HR, CONTINUE TO MONITOR (2) Dehydration Status: Acute Plan: NORMAL SALINE AT 75ML/HR, CONTINUE TO MONITOR (3) Generalized weakness Status: Acute (4) Blood in stool Status: Acute Plan: STOOL STUDIES, MONITOR H&H (5) Anemia Status: Acute Qualifiers: Anemia type: iron deficiency Iron deficiency anemia type: chronic blood loss Qualified Code(s): D50.0 - Iron deficiency anemia secondary to blood loss (chronic) Plan: transfuse 2 units PRBC, CONTINUE TO MONITOR (6) Campylobacter intestinal infection Status: Acute Plan: AZITHROYCIN IV, PROTONIX DRIP, CONTINUE TO MONITOR
--- NOTE | 2018-07-20 19:42 | PCM.PROG ---
Progress Note - Progress Note for Day of Date of Exam: 07/19/18 - Subjective Subjective: IS BEING TREATED FOR UTI, DEHYDRATION, ANEMIA, AND CAMPYLOBACTER. TODAY, SHE IS ALERT AND ORIENTED, LYING IN BED ON MORNING ROUNDS. SHE CONTINUES WITH COMPLAINTS OF WEAKNESS AND ABDOMINAL PAIN THIS MORNING. HER COLOR LOOKS BETTER THIS MORNING. SHE RECEIVED 2 UNITS OF PRBC YESTERDAY. HER VITALS THIS MORNING ARE 99.7-85-20-97%-151/67. LABS WERE OBTAINED. ABNORMAL LAB VALUES INCLUDE THE FOLLOWING: RBC 3.10, HGB 9.5, HCT 28.1, INR 1.76, CHLORIDE 112, BUN 50, CREATININE 1.33, CALCIUM 8.3, AST 46, TOTAL PROTEIN 5.2, ALBUMIN 2.3. CONSULTED WITH PATIENT AND PLANS TO TAKE HER DOWN FOR AN EGD TODAY. OTHERWISE, WE WILL CONTINUE WITH CURRENT PLAN OF CARE. WE WILL FOLLOW UP WITH AM LABS AND CONTINUE TO MONITOR. - Past Medical Family Social History Past Med/Fam/Surg Hx: No changes since H&P Allergies: Allergies iodine Allergy (Verified 03/01/18 14:56) meloxicam [From Mobic] Allergy (Verified 03/01/18 14:56) penicillin G Allergy (Verified 03/01/18 14:56) prochlorperazine [From Compazine] Allergy (Verified 03/01/18 14:56) Sulfa (Sulfonamide Antibiotics) [SULFA] Allergy (Verified 03/01/18 14:56) - Review of Systems ROS: No change since H&P - Vital Signs and I&O's Vital Signs: Temperature 97.8 F Pulse Rate [Apical] 72 Pulse Rate [Left Brachial] 100 Pulse Rate [Right Brachial] 100 Pulse Rate 70 Respiratory Rate 21 Blood Pressure [Left Arm] 132/61 Blood Pressure [Right Arm] 141/60 Blood Pressure 119/58 O2 Sat by Pulse Oximetry 99 Intake and Output: Intake & Output 07/18/18 07/19/18 07/20/18 07/21/18 11:59 11:59 11:59 11:59 Intake Total 1534 / 1534 1937 / 1937 2382 / 2382 1460 / 1460 Output Total 1000 / 1000 2625 / 2625 1300 / 1300 700 / 700 Balance 534 / 534 -688 / -688 1082 / 1082 760 / 760 - Physical Exam Oriented: Normal Eyes: Normal Ear: Normal Nose: Normal Throat: Normal Cardiovascular: Normal, Tachycardia : Normal Auscultation: Bowel Sounds: Normal Palpation: Normal Tenderness: Diffuse. negative: Rebound, Guarding, Rigidity Skin: Normal Musculoskeletal: Normal Psychiatric: Normal Mood Description: Calm Affect: Normal Speech Pattern: Clear, Appropriate - Laboratory and Diagnostics Result Diagrams: 07/20/18 05:55 07/20/18 05:55 Labs: 07/17/18 11:18 Sputum - Expectorated Sputum Sputum Culture - Final Methicillin Resis Staph Aureus 07/17/18 11:18 Sputum - Expectorated Sputum - Final 07/18/18 01:05 Stool Stool Culture - Final 07/18/18 01:05 Stool - Final 07/17/18 11:02 Urine,Catheterized Urine Culture - Final 07/17/18 09:45 Blood Blood Culture - Preliminary 07/17/18 09:38 Blood Blood Culture - Preliminary Laboratory WBC 5.4 X10^3/uL (3.6-10.0) 07/20/18 05:55 RBC 2.84 X10^6/uL (3.5-5.4) L 07/20/18 05:55 Hgb 8.8 g/dL (12.0-16.0) L 07/20/18 05:55 Hct 26.2 % (36.0-47.0) L 07/20/18 05:55 MCV 92.2 fL (80.0-100.0) 07/20/18 05:55 MCH 31.1 pg (27.0-34.0) 07/20/18 05:55 MCHC 33.7 g/dL (33.0-35.0) 07/20/18 05:55 RDW 14.5 % (11.6-16.5) 07/20/18 05:55 Plt Count 257 X10^3/uL (150.0-450.0) 07/20/18 05:55 MPV 8.3 fL (7.4-11.0) 07/20/18 05:55 Neut % (Auto) 67.9 % (42.0-75.0) 07/20/18 05:55 Lymph % (Auto) 20.9 % (21.0-51.0) L 07/20/18 05:55 [place] % (Auto) 6.5 % (0.0-13.0) 07/20/18 05:55 Eos % (Auto) 4.0 % (0.9-2.9) H 07/20/18 05:55 Baso % (Auto) 0.7 % (0.2-1.0) 07/20/18 05:55 Neut # (Auto) 3.7 x10^3/uL (2.2-4.8) 07/20/18 05:55 Lymph # (Auto) 1.1 X10^3/uL (1.3-2.9) L 07/20/18 05:55 [place] # (Auto) 0.3 x10^3/uL (0.3-0.8) 07/20/18 05:55 Eos # (Auto) 0.2 x10^3/uL (0.0-0.2) 07/20/18 05:55 Baso # (Auto) 0.0 X10^3/uL (0.0-0.1) 07/20/18 05:55 Absolute Nucleated RBC 0.1 /100WBC 07/20/18 05:55 INR Target Range - 07/20/18 05:55 INR 1.16 (0.8-1.3) 07/20/18 05:55 Sodium 147 mmol/L (136-145) H 07/20/18 05:55 Corrected Sodium TNP 07/20/18 05:55 Potassium 3.7 mmol/L (3.5-5.1) 07/20/18 05:55 Chloride 114 mmol/L (98-107) H 07/20/18 05:55 Carbon Dioxide 23.0 mmol/L (21-32) 07/20/18 05:55 BUN 25 mg/dL (7-18) H 07/20/18 05:55 Creatinine 0.92 mg/dL (0.55-1.02) 07/20/18 05:55 Est GFR (MDRD) Af Amer > 60 (>60) 07/20/18 05:55 Est GFR (MDRD) Non-Af > 60 (>60) 07/20/18 05:55 Glucose 86 mg/dL (65-99) 07/20/18 05:55 Lactic Acid 1.0 mmol/L (0.4-2.0) 07/17/18 17:00 Calcium 8.3 mg/dL (8.5-10.1) L 07/20/18 05:55 Corrected Calcium 9.6 mg/dL (8.5-10.1) 07/20/18 05:55 Total Bilirubin 0.30 mg/dL (0.2-1.0) 07/20/18 05:55 AST 46 Units/L (15-37) H 07/20/18 05:55 ALT 19 Units/L (12-78) 07/20/18 05:55 Alkaline Phosphatase 52 Units/L (46-116) 07/20/18 05:55 Creatine Kinase 59 Units/L (26-192) 07/17/18 09:45 CK-MB (CK-2) 1.2 ng/mL (0-4.0) 07/17/18 09:45 CK/CKMB % Calc 2.0 % (<4) 07/17/18 09:45 Troponin I 0.03 ng/mL (0-1.5) 07/17/18 09:45 Total Protein 5.2 g/dL (6.4-8.2) L 07/20/18 05:55 Albumin 2.4 g/dL (3.4-5.0) L 07/20/18 05:55 Globulin 2.8 g/dL (2.5-4.5) 07/20/18 05:55 Albumin/Globulin Ratio 0.9 Ratio (1.1-2.1) L 07/20/18 05:55 Specimen Type Catherized urine 07/17/18 11:02 Urine Color Yellow (YELLOW) 07/17/18 11:02 Urine Appearance Hazy (CLEAR) 07/17/18 11:02 Urine pH 6.0 (5.0 - 8.0) 07/17/18 11:02 Ur Specific [place] 1.010 (1.000-1.030) 07/17/18 11:02 Urine Protein 2+ (NEGATIVE) 07/17/18 11:02 Urine Glucose (UA) Negative (NEGATIVE) 07/17/18 11:02 Urine Ketones 3+ (NEGATIVE) 07/17/18 11:02 Urine Occult Blood 2+ (NEGATIVE) 07/17/18 11:02 Urine Nitrite Negative (NEGATIVE) 07/17/18 11:02 Urine Bilirubin Negative (NEGATIVE) 07/17/18 11:02 Urine Urobilinogen Normal (NORMAL) 07/17/18 11:02 Ur Leukocyte Esterase 1+ (NEGATIVE) 07/17/18 11:02 Urine RBC 5-10 /HPF (NONE SEEN) 07/17/18 11:02 Urine WBC 5-10 /HPF (NONE SEEN) 07/17/18 11:02 Ur Squamous Epith Cells Few /HPF (NEGATIVE) 07/17/18 11:02 Ur Transition Epith Cell Few /HPF (NEGATIVE) 07/17/18 11:02 Urine Bacteria Trace /HPF (NEGATIVE) 07/17/18 11:02 Ur Culture Indicated? Yes/culture set up 07/17/18 11:02 Stool Description 50g,black,liquid 07/18/18 01:05 Stl Occult Blood (IFOB) Positive (NEGATIVE) A 07/18/18 01:05 Stl C. diff Tox B Gene Negative (NEGATIVE) 07/18/18 01:05 Stl C. diff [id number] Negative (NEGATIVE) 07/18/18 01:05 Influenza Type A (PCR) Negative (NEGATIVE) 07/17/18 16:27 Influenza Type B (PCR) Negative (NEGATIVE) 07/17/18 16:27 Blood Type O POSITIVE 07/17/18 17:00 Antibody Screen Negative 07/17/18 17:00 Crossmatch See Detail 07/17/18 17:00 - Plan (1) UTI (urinary tract infection) Status: Acute Qualifiers: Urinary tract infection type: acute cystitis Hematuria presence: without hematuria Qualified Code(s): N30.00 - Acute cystitis without hematuria Plan: INVANZ 1GM IV DAILY, NORMAL SALINE AT 75ML/HR, CONTINUE TO MONITOR (2) Dehydration Status: Acute Plan: NORMAL SALINE AT 75ML/HR, CONTINUE TO MONITOR (3) Generalized weakness Status: Acute (4) Blood in stool Status: Acute Plan: STOOL STUDIES, MONITOR H&H (5) Anemia Status: Acute Qualifiers: Anemia type: iron deficiency Iron deficiency anemia type: chronic blood loss Qualified Code(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
[2018-07-20] MEDS: NEURONTIN CAP 300 MG PO SCH (20:31)
[2018-07-20] MEDS: NORCO 5/325 MG TAB PO PRN (20:31)
[2018-07-20] MEDS: ELAVIL PO SCH (20:32)
[2018-07-20] MEDS: PATIENT'S HOME MEDICATION (Melatonin [Melatonin] 5 MG) PO SCH (20:33)
[2018-07-21] MEDS: PROTONIX INJ 40 MG VIAL 80 MG in NS 100 ML IV 80 ML IV SCH ×3 (03:37→13:46)
[2018-07-21] MEDS: VOLTAREN 1 % GEL MULTI DOSE TUBE TOP SCH (05:35)
[2018-07-21] MEDS: REGLAN SYRUP 10 MG UDC PO SCH ×2 (05:36→12:33)
[2018-07-21 06:39] LABS: BASOPHILS % (AUTO) 0.8 % (0.2-1.0); EOSINOPHILS # (AUTO) 0.3 x10^3/uL (0.0-0.2); EOSINOPHILS % (AUTO) 5.2 % (0.9-2.9); HEMATOCRIT 25.1 % (36.0-47.0); HEMOGLOBIN 8.4 g/dL (12.0-16.0); LYMPHOCYTES # (AUTO) 1.4 X10^3/uL (1.3-2.9); LYMPHOCYTES % (AUTO) 25.6 % (21.0-51.0); MEAN CORPUSCULAR HEMOGLOBIN 31.3 pg (27.0-34.0); MEAN CORPUSCULAR HGB CONC 33.6 g/dL (33.0-35.0); MEAN CORPUSCULAR VOLUME 93.1 fL (80.0-100.0); MEAN PLATELET VOLUME 9.3 fL (7.4-11.0); MONOCYTES # (AUTO) 0.4 x10^3/uL (0.3-0.8); MONOCYTES % (AUTO) 7.1 % (0.0-13.0); NEUTROPHILS # (AUTO) 3.3 x10^3/uL (2.2-4.8); NEUTROPHILS % (AUTO) 61.3 % (42.0-75.0); PLATELET COUNT 247 X10^3/uL (150.0-450.0); RED CELL DISTRIBUTION WIDTH 14.6 % (11.6-16.5); WHITE BLOOD COUNT 5.3 X10^3/uL (3.6-10.0)
[2018-07-21 07:26] LABS: ALANINE AMINOTRANSFERASE 18 Units/L (12-78); ALBUMIN 2.1 g/dL (3.4-5.0); ALKALINE PHOSPHATASE 50 Units/L (46-116); ASPARTATE AMINO TRANSFERASE 42 Units/L (15-37); BLOOD UREA NITROGEN 19 mg/dL (7-18); CALCIUM 7.8 mg/dL (8.5-10.1); COR CA(FOR HYPOALB) 9.3 mg/dL (8.5-10.1); SODIUM 145 mmol/L (136-145); TOTAL PROTEIN 4.7 g/dL (6.4-8.2); eGFR NON BLACK RACES > 60 (>60)
[2018-07-21 07:37] LABS: CHLORIDE 116 mmol/L (98-107)
[2018-07-21] MEDS: PEPCID 20 MG IV PREMIX* 20 MG/50 ML BAG IV SCH (08:23)
[2018-07-21] MEDS: MILK OF MAGNESIA PO SCH ×2 (08:23→12:32)
[2018-07-21] MEDS: ZITHROMAX INJ 500 MG VIAL 250 MG in NS 250 ML IV 250 ML IV SCH (08:23)
[2018-07-21] MEDS: INVANZ INJ 1 GM VIAL 1 GM in NS 100 ML IV + SPIKE MINIBAG* 100 ML IV SCH (08:23)
[2018-07-21] MEDS: PATIENT'S HOME MEDICATION (Cran-Vitc-Mannose-Fos-Bromeln [Uti-Stat] 30 ML) PO SCH (08:24)
[2018-07-21] MEDS: AMINO ACIDS PROTEIN HYDROLYS PO SCH (08:24)
[2018-07-21] MEDS: VSL#3 PO SCH (08:24)
[2018-07-21] MEDS: MIRALAX POWDER (1 DOSE 17 G) PO SCH (08:24)
[2018-07-21] MEDS: HEMOCYTE-PLUS PO SCH (08:25)
[2018-07-21] MEDS: NEURONTIN CAP 100 MG PO SCH (08:25)
[2018-07-21] MEDS: MIRAPEX TAB 1 MG PO SCH (08:25)
[2018-07-21] MEDS: MICRO K EXTEN CAP 10 MEQ PO SCH (08:25)
[2018-07-21] MEDS: COLACE CAP 100 MG PO SCH (08:25)
[2018-07-21] MEDS: SINGULAIR TAB 10 MG PO SCH (08:25)
[2018-07-21] MEDS: NS 1000 ML 1,000 ML IV SCH (08:26)
[2018-07-21] MEDS: EXELON PATCH 4.6 MG/24 HR TD SCH (08:26)
[2018-07-21] MEDS: ZESTRIL TAB 5 MG PO SCH (08:26)
[2018-07-21 10:40] VITALS: BP 134/64
[2018-07-21] MEDS: FLONASE NASAL SPRAY ENOSTRIL SCH (12:32)
[2018-07-21] MEDS ORDERED: VIBRAMYCIN 100 MG in D5W 250 ML IV 250 ML IV SCH (13:00)
== END 2018-07-21 16:36 | DRG 689 ==
LOC: MED/SURG 08:26 → ICU 07-18 10:43
PROVIDERS: ADMIT Internal Medicine; ATTEND Internal Medicine
DX: R11.2 Nausea with vomiting, unspecified; K25.4 Chronic or unspecified gastric ulcer with hemorrhage; K44.9 Diaphragmatic hernia without obstruction or gangrene; B96.29 Other Escherichia coli [E. coli] as the cause of diseases classified elsewhere; K56.41 Fecal impaction; I10 Essential (primary) hypertension; A04.5 Campylobacter enteritis; I87.2 Venous insufficiency (chronic) (peripheral); E86.0 Dehydration; K21.9 Gastro-esophageal reflux disease without esophagitis; K92.1 Melena; R26.89 Other abnormalities of gait and mobility; R53.1 Weakness; N30.00 Acute cystitis without hematuria; D50.0 Iron deficiency anemia secondary to blood loss (chronic)
CPT/HCPCS: 36415; 36430; 36556; 71010; 71045; 74000; 74018; 80053; 81001; 82270; 82550; 82553; 83605; 84484; 85014; 85018; 85025; 85610; 86850; 86900; 86901; 86922; 87040; 87045; 87070; 87077; 87086; 87186; 87205; 87427; 87449; 87493; 87502; 87899; 93005; 97110; 97162; 97166; 97530; 99100; A4216; A4217; A4222; C9113; P9016; P9017; S0028; J0456; J1200; J1335; J1630; J1940; J2270; J2405; J2704; J3430; J3490; J7030; J7040; J7050; J7060; J7120

== ENCOUNTER 2018-11-15 08:00 | Inpatient (IN) ==
[2018-11-15 08:22] VITALS: BMI 25.4
[2018-11-15 08:53] LABS: BILIRUBIN,URINE 1+ (NEGATIVE); BLOOD/HEMOGLOBIN,URINE 2+ (NEGATIVE); GLUCOSE, URINE NEGATIVE (NEGATIVE); KETONES,URINE NEGATIVE (NEGATIVE); LEUKOCYTE ESTERASE ,URINE 3+ (NEGATIVE); NITRITES,URINE NEGATIVE (NEGATIVE); PROTEIN,URINE 1+ (NEGATIVE); UROBILINOGEN,URINE NORMAL (NORMAL)
[2018-11-15 09:03] LABS: APPEARANCE,URINE CLOUDY (CLEAR); COLOR,URINE YELLOW (YELLOW)
[2018-11-15 09:04] LABS: BACTERIA,URINE 3+ /HPF (NEGATIVE); SQUAMOUS EPITHELIAL CELL,UR NEGATIVE /HPF (NEGATIVE)
[2018-11-15 09:22] LABS: BASOPHILS # (AUTO) 0.1 X10^3/uL (0.0-0.1); BASOPHILS % (AUTO) 0.8 % (0.2-1.0); EOSINOPHILS # (AUTO) 0.2 x10^3/uL (0.0-0.2); EOSINOPHILS % (AUTO) 3.1 % (0.9-2.9); HEMATOCRIT 32.6 % (36.0-47.0); HEMOGLOBIN 10.5 g/dL (12.0-16.0); LYMPHOCYTES # (AUTO) 1.1 X10^3/uL (1.3-2.9); MEAN CORPUSCULAR HEMOGLOBIN 28.4 pg (27.0-34.0); MEAN CORPUSCULAR HGB CONC 32.3 g/dL (33.0-35.0); MEAN CORPUSCULAR VOLUME 88.1 fL (80.0-100.0); MEAN PLATELET VOLUME 7.8 fL (7.4-11.0); MONOCYTES # (AUTO) 0.4 x10^3/uL (0.3-0.8); MONOCYTES % (AUTO) 5.1 % (0.0-13.0); NEUTROPHILS # (AUTO) 6.1 x10^3/uL (2.2-4.8); PLATELET COUNT 354 X10^3/uL (150.0-450.0); RED CELL DISTRIBUTION WIDTH 14.9 % (11.6-16.5); WHITE BLOOD COUNT 7.9 X10^3/uL (3.6-10.0)
--- NOTE | 2018-11-15 09:32 | RAD ---
History: Hypotension Study: Portable AP chest Comparison: Oct 31 2018 Findings: There is limited inspiration of grossly clear lungs. The heart and mediastinum are unremarkable. There is no edema or effusion. No significant bony abnormality is demonstrated. Impression: Limited inspiration, no definite acute disease. Reported By:
[2018-11-15 09:39] LABS: LACTIC ACID 0.5 mmol/L (0.4-2.0)
--- NOTE | 2018-11-15 09:40 | CT ---
Reported By: ORY: Altered mental status Study: CT head without contrast Comparison: 05/14/2014 Technique: Axial noncontrast images with coronal and sagittal reformats. Dose reduction procedures were used with mA/kv adjusted for body size. Findings: The ventricles, cortical sulci, and other CSF spaces are enlarged consistent with mild generalized atrophy likely age related. There is slight decreased attenuation in the periventricular white matter suggestive of small vessel vascular disease. There is no definite evidence for recent or remote CVA, hemorrhage, mass lesion, or extra-axial fluid collection. The visualized sinuses are clear. The calvarium is intact. IMPRESSION: No acute intracranial abnormality Generalized atrophy likely age related Small vessel disease
[2018-11-15 09:42] LABS: ALANINE AMINOTRANSFERASE 16 Units/L (12-78); ALBUMIN 3.1 g/dL (3.4-5.0); ALKALINE PHOSPHATASE 155 Units/L (46-116); ASPARTATE AMINO TRANSFERASE 33 Units/L (15-37); BLOOD UREA NITROGEN 38 mg/dL (7-18); CALCIUM 9.1 mg/dL (8.5-10.1); CHLORIDE 99 mmol/L (98-107); CKMB % 2.7 % (<4); COR CA(FOR HYPOALB) 9.8 mg/dL (8.5-10.1); CREATINE KINASE 37 Units/L (26-192); CREATINE KINASE MB < 1.0 ng/mL (0-4.0); CREATININE 2.15 mg/dL (0.55-1.02); SODIUM 134 mmol/L (136-145); TOTAL PROTEIN 7.8 g/dL (6.4-8.2); TROPONIN I < 0.02 ng/mL (0-1.5); eGFR NON BLACK RACES 23 (>60)
[2018-11-15] MEDS ORDERED: D50W ABBOJECT SYR IV ONE (09:50)
[2018-11-15] MEDS ORDERED: SODIUM BICARBONATE 8.4% INJ ADULT IVP ONE (09:50)
[2018-11-15] MEDS ORDERED: ACCUNEB 1.25 MG NEBULE NEB ONE ×2 (09:50→12:12)
[2018-11-15] MEDS ORDERED: CALCIUM GLUCONATE 10% IV ONE ×2 (09:50→09:57)
[2018-11-15] MEDS ORDERED: KAYEXALATE SUSP PO ONE (09:50)
[2018-11-15] MEDS ORDERED: HumuLIN R SUBCUT ONE (09:53)
[2018-11-15] MEDS ORDERED: D50W ABBOJECT SYR ONE (09:57)
[2018-11-15] MEDS ORDERED: PROVENTIL NEB TX 0.083% 2.5MG/ 3ML ONE (09:57)
[2018-11-15] MEDS ORDERED: HumuLIN R ONE (09:58)
[2018-11-15] MEDS ORDERED: NS 1000 ML 1,000 ML ONE (09:59)
[2018-11-15] MEDS ORDERED: SODIUM BICARBONATE 8.4% INJ ADULT ONE (09:59)
--- NOTE | 2018-11-15 11:07 | DR.AMS ---
HPI Time Seen Time Seen by Provider: 11/15/18 08:18 PCP Primary Care Physician: STAR Complaint Chief Complaint:: TONH STAFF STATES PT WAS SLOW TO RESPOND WITH A BLOOD PRESSURE OF 62/38, SPO2 88% ON 2LPM, TEMP 99.5. STAFF STATES PT HAD A BLANK STARE ON HER FACE AND JERKING MOVEMENT. UPON ARRIVAL TO THE ED PT NOTED TO BE AWAKE AND ANSWERS QUESTION APPROPRATELY. PT'S STATE HE WAS TRYING TO WAKE THE PATIENT FOR APPOR X1 HOUR WITHOUT SUCCESS. PT DENIES FEELING BAD Source History Provided: EMS Mode of Arrival Mode of Arrival: Stretcher Timing Onset of Chief Complaint: 11/15/18 PMH PMH Past Medical History: Yes Past Medical History: Arthritis, Depression, GERD, Gout and Hypertension Past Surgical History: Yes Surgical History: Unknown Family History History of Family Medical Conditions: Yes Family Medical History: Coronary Artery Disease and Hypertension Social History Does any household member use tobacco: No Alcohol Use: None Do you use any recreational Drugs:: No Lives With: Family Lives Where: Home infectious screening In the last 2 months have you had wt loss of >10#?: NO Have you had fever, night sweats or hemotysis?: No Have you traveled outside the country in the last 6 months?: No Isolation: Standard ROS Review of Systems Constitutional: Weakness Eyes: No Symptoms Reported ENTM: No Symptoms Reported Respiratoy: No Symptoms Reported Cardiovascular: No Symptoms Reported Gastrointestinal/Abdominal: No Symptoms Reported Neurological: No Symptoms Reported Musculoskeletal: No Symptoms Reported Integumentary: No Symptoms Reported Endocrine: No Symptoms Reported All Other Systems: Reviewed and Negative PE Vitals Vital Signs: Temp Pulse Resp BP BP BP Pulse Ox 11/15/18 10:45 94 H 15 94 L 11/15/18 10:37 89 20 124/100 11/15/18 10:30 100 H 76 H 11/15/18 10:15 92 H 18 100 11/15/18 10:00 74 18 115/54 100 11/15/18 09:45 78 16 99 11/15/18 09:30 77 22 116/51 99 11/15/18 09:15 77 27 H 99 11/15/18 09:06 77 15 121/54 100 11/15/18 09:00 81 15 100 11/15/18 08:56 83 11/15/18 08:30 82 17 109/52 99 11/15/18 08:18 81 17 98 11/15/18 08:12 99.1 F 85 16 114/53 97 07/21/18 10:05 134/64 07/20/18 09:00 132/61 07/19/18 20:00 141/60 General Limitations: Language Barrier General Appearance: Alert and In No Apparent Distress Head Head Exam: Normal Inspection, Atraumatic and Normocephalic Eyes Eye exam: Normal Appearance, PERRL and EOMI Pupils: Regular, Round: Bilateral ENT ENT Exam: Normal Exam, Normal Oropharynx and Normal External Ear Exam External Ear Exam: Normal External Inspection TM/Canal Exam: Bilateral: Normal Nose Exam: Normal Nose Exam Mouth Exam: Normal Inspection Throat Exam: Normal Inspection Neck Neck Exam: Normal Inspection and Full ROM Chest Chest Inspection: Normal Inspection and Symmetric Chest Wall Rise Respiratory Respiratory Exam: Normal Lung Sounds Bilat Respiratory Exam: Bilateral: Clear to Auscultation Cardiovascular Cardiovascular Exam: Regular Rate and Normal Rhythm Abdominal Exam Abdominal Exam: Normal Inspection, Normal Bowel Sounds and Soft Abdominal Tenderness: RUQ and RLQ Extremities Extremities Exam: Normal Inspection and Full ROM Back Back Exam: Normal Inspection Neurological Neurological Exam: Alert and Oriented X3 Patient Oriented To: Person Psychological Psychiatric Exam: Normal Affect, Normal Mood and Flat Affect Expanded Psychiatric Exam: Poor Eye Contact Skin Skin Exam: Warm, Dry and Intact COURSE Consultation Called: 10:30 Consultation Comments: Patient was authorized admission to Dr. Hanley service [facility]OR Labs Reviewed Laboratory Results Reviewed?: Yes Result Diagrams: 11/15/18 09:06 11/15/18 09:06 Laboratory: WBC 7.9 X10^3/uL (3.6-10.0) 11/15/18 09:06 RBC 3.70 X10^6/uL (3.5-5.4) 11/15/18 09:06 Hgb 10.5 g/dL (12.0-16.0) L 11/15/18 09:06 Hct 32.6 % (36.0-47.0) L 11/15/18 09:06 MCV 88.1 fL (80.0-100.0) 11/15/18 09:06 MCH 28.4 pg (27.0-34.0) 11/15/18 09:06 MCHC 32.3 g/dL (33.0-35.0) L 11/15/18 09:06 RDW 14.9 % (11.6-16.5) 11/15/18 09:06 Plt Count 354 X10^3/uL (150.0-450.0) 11/15/18 09:06 MPV 7.8 fL (7.4-11.0) 11/15/18 09:06 Neut % (Auto) 77.0 % (42.0-75.0) H 11/15/18 09:06 Lymph % (Auto) 14.0 % (21.0-51.0) L 11/15/18 09:06 [place] % (Auto) 5.1 % (0.0-13.0) 11/15/18 09:06 Eos % (Auto) 3.1 % (0.9-2.9) H 11/15/18 09:06 Baso % (Auto) 0.8 % (0.2-1.0) 11/15/18 09:06 Neut # (Auto) 6.1 x10^3/uL (2.2-4.8) H 11/15/18 09:06 Lymph # (Auto) 1.1 X10^3/uL (1.3-2.9) L 11/15/18 09:06 [place] # (Auto) 0.4 x10^3/uL (0.3-0.8) 11/15/18 09:06 Eos # (Auto) 0.2 x10^3/uL (0.0-0.2) 11/15/18 09:06 Baso # (Auto) 0.1 X10^3/uL (0.0-0.1) 11/15/18 09:06 Absolute Nucleated RBC 0.0 /100WBC 11/15/18 09:06 Sodium 134 mmol/L (136-145) L 11/15/18 09:06 Corrected Sodium TNP 11/15/18 09:06 Potassium 7.0 mmol/L (3.5-5.1) H* 11/15/18 09:06 Chloride 99 mmol/L (98-107) 11/15/18 09:06 Carbon Dioxide 32.0 mmol/L (21-32) 11/15/18 09:06 BUN 38 mg/dL (7-18) H 11/15/18 09:06 Creatinine 2.15 mg/dL (0.55-1.02) H 11/15/18 09:06 Est GFR (MDRD) Af Amer 28 (>60) L 11/15/18 09:06 Est GFR (MDRD) Non-Af 23 (>60) L 11/15/18 09:06 Glucose 103 mg/dL (65-99) H 11/15/18 09:06 Lactic Acid 0.5 mmol/L (0.4-2.0) 11/15/18 09:06 Calcium 9.1 mg/dL (8.5-10.1) 11/15/18 09:06 Corrected Calcium 9.8 mg/dL (8.5-10.1) 11/15/18 09:06 Total Bilirubin 0.30 mg/dL (0.2-1.0) 11/15/18 09:06 AST 33 Units/L (15-37) 11/15/18 09:06 ALT 16 Units/L (12-78) 11/15/18 09:06 Alkaline Phosphatase 155 Units/L (46-116) H 11/15/18 09:06 Creatine Kinase 37 Units/L (26-192) 11/15/18 09:06 CK-MB (CK-2) < 1.0 ng/mL (0-4.0) 11/15/18 09:06 CK/CKMB % Calc 2.7 % (<4) 11/15/18 09:06 Troponin I < 0.02 ng/mL (0-1.5) 11/15/18 09:06 C-Reactive Protein 30.40 mg/L (0-3.0) H 11/15/18 09:06 Total Protein 7.8 g/dL (6.4-8.2) 11/15/18 09:06 Albumin 3.1 g/dL (3.4-5.0) L 11/15/18 09:06 Globulin 4.7 g/dL (2.5-4.5) H 11/15/18 09:06 Albumin/Globulin Ratio 0.7 Ratio (1.1-2.1) L 11/15/18 09:06 Specimen Type Catherized urine 11/15/18 08:40 Urine Color Yellow (YELLOW) 11/15/18 08:40 Urine Appearance Cloudy (CLEAR) 11/15/18 08:40 Urine pH 5.0 (5.0 - 8.0) 11/15/18 08:40 Ur Specific [place] 1.015 (1.000-1.030) 11/15/18 08:40 Urine Protein 1+ (NEGATIVE) 11/15/18 08:40 Urine Glucose (UA) Negative (NEGATIVE) 11/15/18 08:40 Urine Ketones Negative (NEGATIVE) 11/15/18 08:40 Urine Occult Blood 2+ (NEGATIVE) 11/15/18 08:40 Urine Nitrite Negative (NEGATIVE) 11/15/18 08:40 Urine Bilirubin 1+ (NEGATIVE) 11/15/18 08:40 Urine Urobilinogen Normal (NORMAL) 11/15/18 08:40 Ur Leukocyte Esterase 3+ (NEGATIVE) 11/15/18 08:40 Urine RBC 3-5 /HPF (NONE SEEN) 11/15/18 08:40 Urine WBC 20-30 /HPF (NONE SEEN) 11/15/18 08:40 Ur Squamous Epith Cells Negative /HPF (NEGATIVE) 11/15/18 08:40 Urine Bacteria 3+ /HPF (NEGATIVE) 11/15/18 08:40 Ur Culture Indicated? Yes/culture set up 11/15/18 08:40 Other Results Comments: CT Head w/o: No acute intracranial abnormality, generalized atrophy likely age related. CT Chest: There is limited inspiration of grossly clear lungs. The heart and mediastinum are unremarkable. There is no edema or effusion. No significant bony abnormality is demonstrated. XRAY XRAY Interpreted by: Radiologist Opioid Opioid Risk Tool Total: 0 Total Score Risk Category: Low Risk Copyright: Khurram MCFARLANE predicting aberrant behaviors
[2018-11-15] MEDS ORDERED: PREPARATION H OINT PR PRN (11:58)
[2018-11-15] MEDS ORDERED: DURAGESIC 100 mcg/HR PATCH TD SCH (12:00)
[2018-11-15] MEDS ORDERED: NS 1000 ML 1,000 ML IV SCH (12:00)
[2018-11-15] MEDS ORDERED: NS 1/2 1000 ML IV 1,000 ML ONE ×2 (13:37→20:52)
[2018-11-15] MEDS: NORCO 5/325 MG TAB PO PRN (13:46)
[2018-11-15] MEDS: NS 1/2 1000 ML IV 1,000 ML IV SCH (13:47)
[2018-11-15] MEDS: LEVAQUIN PREMIX IV 750 MG 750 MG/150 ML BAG IV SCH (13:48)
[2018-11-15] MEDS: MILK OF MAGNESIA PO SCH ×3 (13:49→21:16)
[2018-11-15] MEDS ORDERED: PROVENTIL NEB TX 0.083% 2.5MG/ 3ML NEB ONE (14:57)
[2018-11-15] MEDS: REGLAN SYRUP 10 MG UDC PO SCH ×2 (17:32→21:11)
[2018-11-15] MEDS ORDERED: AMINO ACIDS PROTEIN HYDROLYS PO SCH (21:00)
[2018-11-15] MEDS ORDERED: PATIENT'S HOME MEDICATION (Melatonin [Melatonin] 5 MG) PO SCH (21:00)
[2018-11-15] MEDS: VOLTAREN 1 % GEL MULTI DOSE TUBE TOP PRN (21:11)
[2018-11-15] MEDS: MIRAPEX TAB 1 MG PO SCH (21:12)
[2018-11-15] MEDS: COLACE CAP 100 MG PO SCH (21:13)
[2018-11-15] MEDS: ELIQUIS PO SCH (21:13)
[2018-11-15] MEDS: NEURONTIN CAP 300 MG PO SCH (21:13)
[2018-11-15] MEDS: PROTONIX TAB 40 MG PO SCH (21:15)
[2018-11-15] MEDS: NEURONTIN CAP 100 MG PO SCH (21:15)
[2018-11-15] MEDS: ELAVIL PO SCH (21:15)
[2018-11-15] MEDS: CRESTOR TAB 10 MG PO SCH (21:15)
[2018-11-15] MEDS: XANAX PO SCH (21:16)
[2018-11-15] MEDS: FLONASE NASAL SPRAY ENOSTRIL SCH (22:44)
[2018-11-16 05:50] LABS: BASOPHILS % (AUTO) 0.3 % (0.2-1.0); EOSINOPHILS # (AUTO) 0.3 x10^3/uL (0.0-0.2); EOSINOPHILS % (AUTO) 2.6 % (0.9-2.9); HEMATOCRIT 28.4 % (36.0-47.0); HEMOGLOBIN 9.4 g/dL (12.0-16.0); LYMPHOCYTES # (AUTO) 1.1 X10^3/uL (1.3-2.9); LYMPHOCYTES % (AUTO) 11.2 % (21.0-51.0); MEAN CORPUSCULAR HEMOGLOBIN 29.5 pg (27.0-34.0); MEAN CORPUSCULAR HGB CONC 33.3 g/dL (33.0-35.0); MEAN CORPUSCULAR VOLUME 88.6 fL (80.0-100.0); MEAN PLATELET VOLUME 8.1 fL (7.4-11.0); MONOCYTES # (AUTO) 0.5 x10^3/uL (0.3-0.8); MONOCYTES % (AUTO) 5.4 % (0.0-13.0); NEUTROPHILS # (AUTO) 8.1 x10^3/uL (2.2-4.8); NEUTROPHILS % (AUTO) 80.5 % (42.0-75.0); PLATELET COUNT 289 X10^3/uL (150.0-450.0); RED CELL DISTRIBUTION WIDTH 14.9 % (11.6-16.5)
[2018-11-16 06:15] LABS: ALANINE AMINOTRANSFERASE 16 Units/L (12-78); ALBUMIN 2.5 g/dL (3.4-5.0); ALKALINE PHOSPHATASE 141 Units/L (46-116); ASPARTATE AMINO TRANSFERASE 26 Units/L (15-37); BLOOD UREA NITROGEN 34 mg/dL (7-18); CALCIUM 8.8 mg/dL (8.5-10.1); CARBON DIOXIDE 34.8 mmol/L (21-32); CHLORIDE 102 mmol/L (98-107); CKMB % 2.6 % (<4); CREATINE KINASE 38 Units/L (26-192); CREATINE KINASE MB < 1.0 ng/mL (0-4.0); CREATININE 1.38 mg/dL (0.55-1.02); MAGNESIUM 2.9 mg/dL (1.7-2.9); SODIUM 137 mmol/L (136-145); TOTAL PROTEIN 6.8 g/dL (6.4-8.2); TROPONIN I < 0.02 ng/mL (0-1.5); eGFR NON BLACK RACES 39 (>60)
[2018-11-16] MEDS: REGLAN SYRUP 10 MG UDC PO SCH ×4 (06:16→21:07)
[2018-11-16] MEDS: ZYLOPRIM PO SCH (08:43)
[2018-11-16] MEDS: PROTONIX TAB 40 MG PO SCH ×2 (08:43→21:07)
[2018-11-16] MEDS: ASPIRIN EC 81 MG PO SCH (08:43)
[2018-11-16] MEDS: COLACE CAP 100 MG PO SCH ×2 (08:43→21:03)
[2018-11-16] MEDS: NEURONTIN CAP 100 MG PO SCH (08:43)
[2018-11-16] MEDS: MIRAPEX TAB 1 MG PO SCH ×2 (08:43→21:06)
[2018-11-16] MEDS: HEMOCYTE-PLUS PO SCH (08:43)
[2018-11-16] MEDS: NORCO 5/325 MG TAB PO PRN ×2 (08:43→23:17)
[2018-11-16] MEDS: SINGULAIR TAB 10 MG PO SCH (08:43)
[2018-11-16] MEDS: ELIQUIS PO SCH ×2 (08:44→21:05)
[2018-11-16] MEDS: VSL#3 PO SCH (08:44)
[2018-11-16] MEDS: DURAGESIC 100 mcg/HR PATCH TD SCH (08:45)
[2018-11-16] MEDS: LASIX PO SCH (08:45)
[2018-11-16] MEDS: FLONASE NASAL SPRAY ENOSTRIL SCH ×2 (08:47→21:06)
[2018-11-16] MEDS: MILK OF MAGNESIA PO SCH ×4 (08:47→21:06)
[2018-11-16] MEDS ORDERED: ZESTRIL TAB 5 MG PO SCH (09:00)
[2018-11-16] MEDS: EXELON PATCH 4.6 MG/24 HR TD SCH (09:42)
[2018-11-16] MEDS: VOLTAREN 1 % GEL MULTI DOSE TUBE TOP PRN (16:35)
[2018-11-16] MEDS: ZOFRAN TAB 4 MG PO PRN (17:45)
--- NOTE | 2018-11-16 19:58 | DR.H&P ---
H&P - History & Physical for Day of: H&P Date: 11/15/18 - Chief Complaint Chief Complaint: HYPOTENSION, JERKING MOVEMENTS, DECREASED RESPONSIVENESS - History of Present Illness History of Present Illness: IS A 88 YEAR OLD PATIENT OF OURS WHO PRESENTED TO THE ER FROM [facility] WITH HYPOTENSION, JERKING MOVEMENT, AND DECREASED RESPONSIVENESS. ON ARRIVAL, VITALS WERE 99.1-85-16-97%-114/53. LABS WERE OBTAINED. ABNORMAL LAB VALUES INCLUDE THE FOLLOWING: HGB 10.5, HCT 32.6, INR 1.32, SODIUM 134, POTASSIUM 7.0, BUN 38, CREATININE 2.15, GLUCOSE 103, ALK PHOS 155, CRP 30.40, ALBUMIN 3.1, GLOBULIN 4.7. URINALYSIS REVEALED: WBC 20-30, RBC 3-5, LEUKOCYTES 3+, BACTERIA 3+, BILI 1+, OCCULT BLOOD 2+. URINE CULTURE PENDING. AN EKG WAS OBTAINED AND REVEALED: SINUS RHYTHM WITH HR 85. BRAIN CT REVEALED: No acute intracranial abnormality. Generalized atrophy likely age related. Small vessel disease. CHEST XRAY REVEALED: LIMITED INSPIRATION, NO DEFINITE ACUTE DISEASE. SHE WAS GIVEN HUMULIN R 10 UNITS, CALCIUM GLUCONATE 1G IV X 1 DOSE, ONE AMP OF D50, ONE AMP OF SODIUM BICARB, AND KAYEXALATE 15G PO X 1 IN THE ER. WE ADMITTED HER FOR FURTHER EVALUATION AND TREATMENT OF HYPERKALEMIA, UTI, AND DEHYDRATION. SHE WAS STARTED ON NORMAL SALINE AT 70ML/HR AND LEVAQUIN 750MG IV Q48H. WE PLAN TO FOLLOW UP WITH AM LABS AND CONTINUE TO MONITOR. - Past Medical History Past Medical History: Hypertension, Depression, GERD, Arthritis, Gout - Past Surgical History Surgical History: Unknown Additional Surgical History: back surgery, neuro stimulator in place in back - Family History Family Medical History: Coronary Artery Disease, Hypertension - Social History Does any household member use tobacco: No Alcohol Use: None Drug Use: None Prescription drug monitoring program results: PDMP reviewed and no concerns identified - Medications Home Medications: iodine Allergy (Verified 03/01/18 14:56) meloxicam [From Mobic] Allergy (Verified 03/01/18 14:56) penicillin G Allergy (Verified 03/01/18 14:56) prochlorperazine [From Compazine] Allergy (Verified 03/01/18 14:56) Sulfa (Sulfonamide Antibiotics) [SULFA] Allergy (Verified 03/01/18 14:56) CONTINUE taking the following medications apixaban [Eliquis] 2.5 mg PO BID 11/15/18 [History] fluticasone propionate [Flonase Allergy Relief] 1 inh INTRANASAL BID 11/15/18 [History] hydrocodone-acetaminophen [[place]] 5 mg PO PRN PRN 11/15/18 [History] magnesium hydroxide [Milk of Magnesia] 10 ml PO QID 11/15/18 [History] rivastigmine [Exelon] 4.6 mg TOPICAL DAILY 11/15/18 [History] rosuvastatin 5 mg PO HS 11/15/18 [History] - Review of Systems Constitutional: Weakness. denies: Fever Eyes: No Symptoms Reported ENT: No Symptoms Reported Respiratory: No Symptoms Reported Cardiovascular: No Symptoms Reported Gastrointestinal: No Symptoms Reported Genitourinary: No Symptoms Reported Musculoskeletal: No Symptoms Reported Skin: No Symptoms Reported Neurological: See HPI, Weakness, Other (JERKING/SHAKING MOVEMENTS ) - Physical Exam Vital Signs: Temperature 98.2 F Pulse Rate [Left Brachial] 83 Pulse Rate 85 Respiratory Rate 17 Blood Pressure [Left Arm] 124/55 Blood Pressure [Right Arm] 141/60 Blood Pressure 144/61 O2 Sat by Pulse Oximetry 100 Oriented: Person Eyes: Normal Ear: Normal Nose: Normal Throat: Normal Respiratory: Diminished Throughout Cardiovascular: Normal. negative: S3, S4, Murmur : Normal Auscultation: Bowel Sounds: Normal Palpation: Normal Tenderness: Normal Skin: Normal Musculoskeletal: Normal Psychiatric: Normal Mood Description: Calm Affect: Normal Speech Pattern: Clear - Assessment/Plan (1) Acute dehydration Status: Acute Plan: IV HYDRATION, CONTINUE TO MONITOR (2) Acute UTI Status: Acute Plan: LEVAQUIN 750MG IV Q48H, IV HYDRATION, CONTINUE TO MONITOR (3) Acute hyperkalemia Status: Acute Plan: IV HYDRATION - Allergies Allergies/Adverse Reactions: Allergies Allergy/AdvReac Type Severity Reaction Status Date / Time iodine Allergy Verified 03/01/18 14:56 meloxicam [From Mobic] Allergy Verified 03/01/18 14:56 penicillin G Allergy Verified 03/01/18 14:56 prochlorperazine Allergy Verified 03/01/18 14:56 [From Compazine] Sulfa (Sulfonamide Allergy Verified 03/01/18 14:56 Antibiotics) [SULFA]
[2018-11-16] MEDS ORDERED: NS 1/2 1000 ML IV 1,000 ML ONE (20:09)
[2018-11-16] MEDS: NS 1/2 1000 ML IV 1,000 ML IV SCH (21:02)
[2018-11-16] MEDS: CRESTOR TAB 10 MG PO SCH (21:04)
[2018-11-16] MEDS: ELAVIL PO SCH (21:05)
[2018-11-16] MEDS: NEURONTIN CAP 300 MG PO SCH (21:07)
[2018-11-16] MEDS: XANAX PO SCH (21:07)
[2018-11-17 05:41] LABS: BASOPHILS # (AUTO) 0.1 X10^3/uL (0.0-0.1); BASOPHILS % (AUTO) 0.6 % (0.2-1.0); EOSINOPHILS # (AUTO) 0.5 x10^3/uL (0.0-0.2); EOSINOPHILS % (AUTO) 6.3 % (0.9-2.9); HEMATOCRIT 31.3 % (36.0-47.0); HEMOGLOBIN 10.4 g/dL (12.0-16.0); LYMPHOCYTES # (AUTO) 1.7 X10^3/uL (1.3-2.9); LYMPHOCYTES % (AUTO) 20.5 % (21.0-51.0); MEAN CORPUSCULAR HEMOGLOBIN 29.4 pg (27.0-34.0); MEAN CORPUSCULAR HGB CONC 33.2 g/dL (33.0-35.0); MEAN CORPUSCULAR VOLUME 88.7 fL (80.0-100.0); MEAN PLATELET VOLUME 7.8 fL (7.4-11.0); MONOCYTES # (AUTO) 0.6 x10^3/uL (0.3-0.8); NEUTROPHILS # (AUTO) 5.4 x10^3/uL (2.2-4.8); NEUTROPHILS % (AUTO) 65.6 % (42.0-75.0); PLATELET COUNT 273 X10^3/uL (150.0-450.0); RED BLOOD COUNT 3.53 X10^6/uL (3.5-5.4); RED CELL DISTRIBUTION WIDTH 14.4 % (11.6-16.5); WHITE BLOOD COUNT 8.2 X10^3/uL (3.6-10.0)
[2018-11-17 05:58] LABS: ALANINE AMINOTRANSFERASE 14 Units/L (12-78); ALBUMIN 2.7 g/dL (3.4-5.0); ALKALINE PHOSPHATASE 137 Units/L (46-116); ASPARTATE AMINO TRANSFERASE 30 Units/L (15-37); BLOOD UREA NITROGEN 26 mg/dL (7-18); CALCIUM 9.1 mg/dL (8.5-10.1); CARBON DIOXIDE 32.1 mmol/L (21-32); CHLORIDE 101 mmol/L (98-107); COR CA(FOR HYPOALB) 10.1 mg/dL (8.5-10.1); CREATININE 1.11 mg/dL (0.55-1.02); SODIUM 136 mmol/L (136-145); TOTAL PROTEIN 7.3 g/dL (6.4-8.2); eGFR NON BLACK RACES 50 (>60)
[2018-11-17] MEDS: REGLAN SYRUP 10 MG UDC PO SCH ×4 (06:00→20:53)
[2018-11-17] MEDS: HEMOCYTE-PLUS PO SCH (08:37)
[2018-11-17] MEDS: MIRAPEX TAB 1 MG PO SCH ×2 (08:37→20:55)
[2018-11-17] MEDS: PROTONIX TAB 40 MG PO SCH ×2 (08:37→20:55)
[2018-11-17] MEDS: VSL#3 PO SCH (08:37)
[2018-11-17] MEDS: SINGULAIR TAB 10 MG PO SCH (08:38)
[2018-11-17] MEDS: ASPIRIN EC 81 MG PO SCH (08:38)
[2018-11-17] MEDS: ZYLOPRIM PO SCH (08:38)
[2018-11-17] MEDS: COLACE CAP 100 MG PO SCH ×2 (08:38→20:54)
[2018-11-17] MEDS: ELIQUIS PO SCH ×2 (08:38→20:55)
[2018-11-17] MEDS: LASIX PO SCH (08:38)
[2018-11-17] MEDS: NEURONTIN CAP 100 MG PO SCH ×2 (08:38→12:10)
[2018-11-17] MEDS: MILK OF MAGNESIA PO SCH ×4 (08:39→20:52)
[2018-11-17] MEDS: EXELON PATCH 4.6 MG/24 HR TD SCH (08:40)
[2018-11-17] MEDS: FLONASE NASAL SPRAY ENOSTRIL SCH ×2 (08:45→21:04)
[2018-11-17] MEDS ORDERED: NS 1/2 1000 ML IV 1,000 ML ONE (08:49)
[2018-11-17] MEDS: NS 1/2 1000 ML IV 1,000 ML IV SCH ×2 (08:50→12:09)
[2018-11-17] MEDS: LEVAQUIN PREMIX IV 750 MG 750 MG/150 ML BAG IV SCH (12:12)
[2018-11-17] MEDS: BUTT CREAM (COMPOUND) TOP PRN ×2 (12:25→23:00)
[2018-11-17] MEDS ORDERED: KAYEXALATE SUSP PO ONE (18:14)
--- NOTE | 2018-11-17 18:21 | PCM.PROG ---
Progress Note - Progress Note for Day of Date of Exam: 11/17/18 - Subjective Subjective: IS A 88 YEAR OLD PATIENT OF DR GRAVES'Jane WHO PRESENTED TO THE ER FROM [facility] [place] WITH HYPOTENSION, JERKING MOVEMENT, AND DECREASED RESPONSIVENESS. PT CMP IN ER REVEALED k+ 7.0. CT HEAD ON ADMISSION WITHOUT ACUTE FINDINGS. PT WAS ADMITTED FOR CARDIAC MONITORING, TREATMENT OF ACUTE RENAL INSUFFICIENCY AND HYPERKALEMIA. PT k 5.3 THIS AM, BUN 26, CREAT 1.11. PT IS CURRENTLY ON IV LEVAQUIN FOR TREATMENT UTI. UC +KLEBSIELLA. PLAN TO CONTINUE GENTLE IV HYDRATION, STRICT I & OS, BP CONTROL. KAYEXALATE PO X 1 DOSE, ENCOURAGE PO WATER INTAKE REPEAT AM LABS AND CXR. - Past Medical Family Social History Past Med/Fam/Surg Hx: No changes since H&P Allergies: Allergies iodine Allergy (Verified 03/01/18 14:56) meloxicam [From Mobic] Allergy (Verified 03/01/18 14:56) penicillin G Allergy (Verified 03/01/18 14:56) prochlorperazine [From Compazine] Allergy (Verified 03/01/18 14:56) Sulfa (Sulfonamide Antibiotics) [SULFA] Allergy (Verified 03/01/18 14:56) - Review of Systems ROS: No change since H&P - Vital Signs and I&O's Vital Signs: Temperature 99.1 F Pulse Rate [Left Brachial] 83 Pulse Rate 91 Respiratory Rate 14 Blood Pressure [Left Arm] 124/55 Blood Pressure [Right Arm] 141/60 Blood Pressure 108/53 O2 Sat by Pulse Oximetry 98 Intake and Output: Intake & Output 11/15/18 11/16/18 11/17/18 11/18/18 11:59 11:59 11:59 11:59 Intake Total 1560 / 1560 3190 / 3190 961 / 961 Balance 1560 / 1560 3190 / 3190 961 / 961 - Physical Exam Oriented: Person Eyes: Normal Ear: Normal Nose: Normal Throat: Normal Respiratory: Diminished Cardiovascular: Normal. negative: S3, S4, Murmur : Normal Auscultation: Bowel Sounds: Normal Tenderness: Normal Skin: Decreased Turgur Musculoskeletal: Right, Left, Knee, Tender, Motor Deficit Psychiatric: Normal Mood Description: Calm Affect: Normal Speech Pattern: Clear, Appropriate - Laboratory and Diagnostics Result Diagrams: 11/17/18 05:30 11/17/18 05:30 Labs: 11/15/18 08:40 Urine,Catheterized Urine Culture - Final Klebsiella Pneumoniae Laboratory WBC 8.2 X10^3/uL (3.6-10.0) 11/17/18 05:30 RBC 3.53 X10^6/uL (3.5-5.4) 11/17/18 05:30 Hgb 10.4 g/dL (12.0-16.0) L 11/17/18 05:30 Hct 31.3 % (36.0-47.0) L 11/17/18 05:30 MCV 88.7 fL (80.0-100.0) 11/17/18 05:30 MCH 29.4 pg (27.0-34.0) 11/17/18 05:30 MCHC 33.2 g/dL (33.0-35.0) 11/17/18 05:30 RDW 14.4 % (11.6-16.5) 11/17/18 05:30 Plt Count 273 X10^3/uL (150.0-450.0) 11/17/18 05:30 MPV 7.8 fL (7.4-11.0) 11/17/18 05:30 Neut % (Auto) 65.6 % (42.0-75.0) 11/17/18 05:30 Lymph % (Auto) 20.5 % (21.0-51.0) L 11/17/18 05:30 [place] % (Auto) 7.0 % (0.0-13.0) 11/17/18 05:30 Eos % (Auto) 6.3 % (0.9-2.9) H 11/17/18 05:30 Baso % (Auto) 0.6 % (0.2-1.0) 11/17/18 05:30 Neut # (Auto) 5.4 x10^3/uL (2.2-4.8) H 11/17/18 05:30 Lymph # (Auto) 1.7 X10^3/uL (1.3-2.9) 11/17/18 05:30 [place] # (Auto) 0.6 x10^3/uL (0.3-0.8) 11/17/18 05:30 Eos # (Auto) 0.5 x10^3/uL (0.0-0.2) H 11/17/18 05:30 Baso # (Auto) 0.1 X10^3/uL (0.0-0.1) 11/17/18 05:30 Absolute Nucleated RBC 0.0 /100WBC 11/17/18 05:30 INR Target Range - 11/16/18 05:15 INR 1.32 (0.8-1.3) H 11/16/18 05:15 Sodium 136 mmol/L (136-145) 11/17/18 05:30 Corrected Sodium TNP 11/17/18 05:30 Potassium 5.3 mmol/L (3.5-5.1) H 11/17/18 05:30 Chloride 101 mmol/L (98-107) 11/17/18 05:30 Carbon Dioxide 32.1 mmol/L (21-32) H 11/17/18 05:30 BUN 26 mg/dL (7-18) H 11/17/18 05:30 Creatinine 1.11 mg/dL (0.55-1.02) H 11/17/18 05:30 Est GFR (MDRD) Af Amer 60 (>60) 11/17/18 05:30 Est GFR (MDRD) Non-Af 50 (>60) L 11/17/18 05:30 Glucose 92 mg/dL (65-99) 11/17/18 05:30 Lactic Acid 0.5 mmol/L (0.4-2.0) 11/15/18 09:06 Calcium 9.1 mg/dL (8.5-10.1) 11/17/18 05:30 Corrected Calcium 10.1 mg/dL (8.5-10.1) 11/17/18 05:30 Magnesium 2.9 mg/dL (1.7-2.9) 11/16/18 05:15 Total Bilirubin 0.20 mg/dL (0.2-1.0) 11/17/18 05:30 AST 30 Units/L (15-37) 11/17/18 05:30 ALT 14 Units/L (12-78) 11/17/18 05:30 Alkaline Phosphatase 137 Units/L (46-116) H 11/17/18 05:30 Creatine Kinase 38 Units/L (26-192) 11/16/18 05:15 CK-MB (CK-2) < 1.0 ng/mL (0-4.0) 11/16/18 05:15 CK/CKMB % Calc 2.6 % (<4) 11/16/18 05:15 Troponin I < 0.02 ng/mL (0-1.5) 11/16/18 05:15 C-Reactive Protein 30.40 mg/L (0-3.0) H 11/15/18 09:06 Total Protein 7.3 g/dL (6.4-8.2) 11/17/18 05:30 Albumin 2.7 g/dL (3.4-5.0) L 11/17/18 05:30 Globulin 4.6 g/dL (2.5-4.5) H 11/17/18 05:30 Albumin/Globulin Ratio 0.6 Ratio (1.1-2.1) L 11/17/18 05:30 Specimen Type Catherized urine 11/15/18 08:40 Urine Color Yellow (YELLOW) 11/15/18 08:40 Urine Appearance Cloudy (CLEAR) 11/15/18 08:40 Urine pH 5.0 (5.0 - 8.0) 11/15/18 08:40 Ur Specific [place] 1.015 (1.000-1.030) 11/15/18 08:40 Urine Protein 1+ (NEGATIVE) 11/15/18 08:40 Urine Glucose (UA) Negative (NEGATIVE) 11/15/18 08:40 Urine Ketones Negative (NEGATIVE) 11/15/18 08:40 Urine Occult Blood 2+ (NEGATIVE) 11/15/18 08:40 Urine Nitrite Negative (NEGATIVE) 11/15/18 08:40 Urine Bilirubin 1+ (NEGATIVE) 11/15/18 08:40 Urine Urobilinogen Normal (NORMAL) 11/15/18 08:40 Ur Leukocyte Esterase 3+ (NEGATIVE) 11/15/18 08:40 Urine RBC 3-5 /HPF (NONE SEEN) 11/15/18 08:40 Urine WBC 20-30 /HPF (NONE SEEN) 11/15/18 08:40 Ur Squamous Epith Cells Negative /HPF (NEGATIVE) 11/15/18 08:40 Urine Bacteria 3+ /HPF (NEGATIVE) 11/15/18 08:40 Ur Culture Indicated? Yes/culture set up 11/15/18 08:40 - Plan (1) Altered mental status Status: Acute Plan: DUE TO ACUTE UTI, DEHYDRATION, HYPERKALEMIA. PLAN TO CONTINUE IV LEVAQUIN, GENTLE IV HYDRATION. BP CONTROL, PRN SUPPLEMENTAL O2. AM LABS, CONTINUOUS CARDIAC MONITORING (2) Acute renal insufficiency Status: Acute (3) UTI (urinary tract infection) Status: Acute Qualifiers: Urinary tract infection type: acute cystitis Hematuria presence: without hematuria Qualified Code(s): N30.00 - Acute cystitis without hematuria (4) Dehydration Status: Acute (5) Acute hyperkalemia Status: Acute Plan: IV HYDRATION (6) Chronic pain Status: Chronic (7) Rheumatoid arthritis Status: Chronic (8) Essential hypertension Status: Chronic
[2018-11-17] MEDS: NORCO 5/325 MG TAB PO PRN (19:25)
[2018-11-17] MEDS: CRESTOR TAB 10 MG PO SCH (20:54)
[2018-11-17] MEDS: NEURONTIN CAP 300 MG PO SCH (20:54)
[2018-11-17] MEDS: ELAVIL PO SCH (20:55)
[2018-11-17] MEDS: XANAX PO SCH (20:55)
[2018-11-18] MEDS ORDERED: NS 1/2 1000 ML IV 1,000 ML ONE (05:59)
[2018-11-18] MEDS: REGLAN SYRUP 10 MG UDC PO SCH ×4 (06:14→20:34)
[2018-11-18 06:15] LABS: BASOPHILS % (AUTO) 0.7 % (0.2-1.0); EOSINOPHILS # (AUTO) 0.4 x10^3/uL (0.0-0.2); EOSINOPHILS % (AUTO) 6.6 % (0.9-2.9); HEMATOCRIT 32.3 % (36.0-47.0); HEMOGLOBIN 10.8 g/dL (12.0-16.0); LYMPHOCYTES # (AUTO) 1.3 X10^3/uL (1.3-2.9); LYMPHOCYTES % (AUTO) 19.6 % (21.0-51.0); MEAN CORPUSCULAR HGB CONC 33.3 g/dL (33.0-35.0); MEAN CORPUSCULAR VOLUME 87.1 fL (80.0-100.0); MEAN PLATELET VOLUME 8.4 fL (7.4-11.0); MONOCYTES # (AUTO) 0.3 x10^3/uL (0.3-0.8); MONOCYTES % (AUTO) 5.4 % (0.0-13.0); NEUTROPHILS # (AUTO) 4.4 x10^3/uL (2.2-4.8); NEUTROPHILS % (AUTO) 67.7 % (42.0-75.0); PLATELET COUNT 291 X10^3/uL (150.0-450.0); RED BLOOD COUNT 3.71 X10^6/uL (3.5-5.4); RED CELL DISTRIBUTION WIDTH 14.6 % (11.6-16.5); WHITE BLOOD COUNT 6.5 X10^3/uL (3.6-10.0)
[2018-11-18] MEDS: NS 1/2 1000 ML IV 1,000 ML IV SCH ×2 (06:15→12:48)
--- NOTE | 2018-11-18 06:21 | RAD ---
History: CHF Study: Portable AP chest Comparison: November 15 Findings: There is limited inspiration. There is new patchy ill-defined infiltrates in the right lung above the minor fissure with some linear horizontal density at the right lung base. There is a minimal focal infiltrate at the left lung base laterally. The heart size is normal. No effusion is suggested. Impression: Limited inspiration. Minimal subsegmental atelectasis at both lung bases and mild pneumonitis in the right mid lung projecting above the minor fissure Reported By:
[2018-11-18 06:27] LABS: ALANINE AMINOTRANSFERASE 14 Units/L (12-78); ALBUMIN 2.5 g/dL (3.4-5.0); ALKALINE PHOSPHATASE 132 Units/L (46-116); ASPARTATE AMINO TRANSFERASE 31 Units/L (15-37); BLOOD UREA NITROGEN 21 mg/dL (7-18); CALCIUM 9.1 mg/dL (8.5-10.1); CARBON DIOXIDE 33.7 mmol/L (21-32); CHLORIDE 100 mmol/L (98-107); COR CA(FOR HYPOALB) 10.3 mg/dL (8.5-10.1); SODIUM 137 mmol/L (136-145); TOTAL PROTEIN 7.1 g/dL (6.4-8.2); eGFR NON BLACK RACES 56 (>60)
--- NOTE | 2018-11-18 08:35 | PCM.PROG ---
Progress Note - Progress Note for Day of Date of Exam: 11/16/18 - Subjective Subjective: IS BEING TREATED FOR UTI, HYPERKALEMIA, AND DEHYDRATION. TODAY, SHE IS ALERT AND ORIENTED, LYING IN BED ON MORNING ROUNDS. SHE COMPLAINS OF WEAKNESS AND LOWER ABDOMINAL PAIN THIS MORNING. ON EXAMINATION, HEART IS REGULAR IN RATE AND RHYTHM. BILATERAL LUNGS ARE NOTED WITH DIMINISHED LUNG SOUNDS THROUGHOUT. ABDOMEN IS ROUND, SOFT, AND NOTED WITH MILD SUPRAPUBIC TENDERNESS. NORMAL BOWEL SOUNDS NOTED IN ALL QUADRANTS. HER VITALS THIS MORNING ARE: 98.5-88-20-98%-143/63. LABS WERE OBTAINED. ABNORMAL LAB VALUES INCLUDE THE FOLLOWING: RBC 3.20, HGB 9.4, HCT 28.4, INR 1.32, POTASSIUM DECREASED FROM 7.0 TO 6.3, CARBON DIOXIDE 34.8, BUN 34, CREATININE 1.38, GLUCOSE 103, ALK PHOS 141, ALBUMIN 2.5. URINE CULTURE IS PENDING. SHE IS CURRENTLY RECEIVING NS AT 70ML/HR AND LEVAQUIN 750MG IV Q48H. WE WILL CONTINUE WITH CURRENT PLAN OF CARE TODAY. WE WILL RESUME HER HOME MEDICATIONS WITH THE EXCEPTION OF HER LISINOPRIL AND POTASSIUM. OTHERWISE, WE WILL FOLLOW UP WITH AM LABS AND CONTINUE TO MONITOR. - Past Medical Family Social History Past Med/Fam/Surg Hx: No changes since H&P Allergies: Allergies iodine Allergy (Verified 03/01/18 14:56) meloxicam [From Mobic] Allergy (Verified 03/01/18 14:56) penicillin G Allergy (Verified 03/01/18 14:56) prochlorperazine [From Compazine] Allergy (Verified 03/01/18 14:56) Sulfa (Sulfonamide Antibiotics) [SULFA] Allergy (Verified 03/01/18 14:56) - Review of Systems ROS: No change since H&P - Vital Signs and I&O's Vital Signs: Temperature 98.6 F Pulse Rate [Left Brachial] 83 Pulse Rate 68 Respiratory Rate 19 Blood Pressure [Left Arm] 124/55 Blood Pressure [Right Arm] 141/60 Blood Pressure 103/50 O2 Sat by Pulse Oximetry 100 Intake and Output: Intake & Output 11/15/18 11/16/18 11/17/18 11/18/18 11:59 11:59 11:59 11:59 Intake Total 1560 / 1560 3190 / 3190 2603 / 2603 Balance 1560 / 1560 3190 / 3190 2603 / 2603 - Physical Exam Oriented: Person Eyes: Normal Ear: Normal Nose: Normal Throat: Normal Respiratory: Diminished Cardiovascular: Normal. negative: S3, S4, Murmur : Normal Auscultation: Bowel Sounds: Normal Palpation: Normal Tenderness: Normal Skin: Decreased Turgur Musculoskeletal: Right, Left, Knee, Tender, Motor Deficit Psychiatric: Normal Mood Description: Calm Affect: Normal Speech Pattern: Clear, Appropriate - Laboratory and Diagnostics Result Diagrams: 11/18/18 05:29 11/18/18 05:29 Labs: 11/15/18 08:40 Urine,Catheterized Urine Culture - Final Klebsiella Pneumoniae Laboratory WBC 6.5 X10^3/uL (3.6-10.0) 11/18/18 05:29 RBC 3.71 X10^6/uL (3.5-5.4) 11/18/18 05:29 Hgb 10.8 g/dL (12.0-16.0) L 11/18/18 05:29 Hct 32.3 % (36.0-47.0) L 11/18/18 05:29 MCV 87.1 fL (80.0-100.0) 11/18/18 05:29 MCH 29.0 pg (27.0-34.0) 11/18/18 05:29 MCHC 33.3 g/dL (33.0-35.0) 11/18/18 05:29 RDW 14.6 % (11.6-16.5) 11/18/18 05:29 Plt Count 291 X10^3/uL (150.0-450.0) 11/18/18 05:29 MPV 8.4 fL (7.4-11.0) 11/18/18 05:29 Neut % (Auto) 67.7 % (42.0-75.0) 11/18/18 05:29 Lymph % (Auto) 19.6 % (21.0-51.0) L 11/18/18 05:29 [place] % (Auto) 5.4 % (0.0-13.0) 11/18/18 05:29 Eos % (Auto) 6.6 % (0.9-2.9) H 11/18/18 05:29 Baso % (Auto) 0.7 % (0.2-1.0) 11/18/18 05:29 Neut # (Auto) 4.4 x10^3/uL (2.2-4.8) 11/18/18 05:29 Lymph # (Auto) 1.3 X10^3/uL (1.3-2.9) 11/18/18 05:29 [place] # (Auto) 0.3 x10^3/uL (0.3-0.8) 11/18/18 05:29 Eos # (Auto) 0.4 x10^3/uL (0.0-0.2) H 11/18/18 05:29 Baso # (Auto) 0.0 X10^3/uL (0.0-0.1) 11/18/18 05:29 Absolute Nucleated RBC 0.0 /100WBC 11/18/18 05:29 INR Target Range - 11/16/18 05:15 INR 1.32 (0.8-1.3) H 11/16/18 05:15 Sodium 137 mmol/L (136-145) 11/18/18 05:29 Corrected Sodium TNP 11/18/18 05:29 Potassium 4.4 mmol/L (3.5-5.1) 11/18/18 05:29 Chloride 100 mmol/L (98-107) 11/18/18 05:29 Carbon Dioxide 33.7 mmol/L (21-32) H 11/18/18 05:29 BUN 21 mg/dL (7-18) H 11/18/18 05:29 Creatinine 1.00 mg/dL (0.55-1.02) 11/18/18 05:29 Est GFR (MDRD) Af Amer > 60 (>60) 11/18/18 05:29 Est GFR (MDRD) Non-Af 56 (>60) L 11/18/18 05:29 Glucose 93 mg/dL (65-99) 11/18/18 05:29 Lactic Acid 0.5 mmol/L (0.4-2.0) 11/15/18 09:06 Calcium 9.1 mg/dL (8.5-10.1) 11/18/18 05:29 Corrected Calcium 10.3 mg/dL (8.5-10.1) H 11/18/18 05:29 Magnesium 2.9 mg/dL (1.7-2.9) 11/16/18 05:15 Total Bilirubin 0.20 mg/dL (0.2-1.0) 11/18/18 05:29 AST 31 Units/L (15-37) 11/18/18 05:29 ALT 14 Units/L (12-78) 11/18/18 05:29 Alkaline Phosphatase 132 Units/L (46-116) H 11/18/18 05:29 Creatine Kinase 38 Units/L (26-192) 11/16/18 05:15 CK-MB (CK-2) < 1.0 ng/mL (0-4.0) 11/16/18 05:15 CK/CKMB % Calc 2.6 % (<4) 11/16/18 05:15 Troponin I < 0.02 ng/mL (0-1.5) 11/16/18 05:15 C-Reactive Protein 30.40 mg/L (0-3.0) H 11/15/18 09:06 Total Protein 7.1 g/dL (6.4-8.2) 11/18/18 05:29 Albumin 2.5 g/dL (3.4-5.0) L 11/18/18 05:29 Globulin 4.6 g/dL (2.5-4.5) H 11/18/18 05:29 Albumin/Globulin Ratio 0.5 Ratio (1.1-2.1) L 11/18/18 05:29 Specimen Type Catherized urine 11/15/18 08:40 Urine Color Yellow (YELLOW) 11/15/18 08:40 Urine Appearance Cloudy (CLEAR) 11/15/18 08:40 Urine pH 5.0 (5.0 - 8.0) 11/15/18 08:40 Ur Specific [place] 1.015 (1.000-1.030) 11/15/18 08:40 Urine Protein 1+ (NEGATIVE) 11/15/18 08:40 Urine Glucose (UA) Negative (NEGATIVE) 11/15/18 08:40 Urine Ketones Negative (NEGATIVE) 11/15/18 08:40 Urine Occult Blood 2+ (NEGATIVE) 11/15/18 08:40 Urine Nitrite Negative (NEGATIVE) 11/15/18 08:40 Urine Bilirubin 1+ (NEGATIVE) 11/15/18 08:40 Urine Urobilinogen Normal (NORMAL) 11/15/18 08:40 Ur Leukocyte Esterase 3+ (NEGATIVE) 11/15/18 08:40 Urine RBC 3-5 /HPF (NONE SEEN) 11/15/18 08:40 Urine WBC 20-30 /HPF (NONE SEEN) 11/15/18 08:40 Ur Squamous Epith Cells Negative /HPF (NEGATIVE) 11/15/18 08:40 Urine Bacteria 3+ /HPF (NEGATIVE) 11/15/18 08:40 Ur Culture Indicated? Yes/culture set up 11/15/18 08:40 - Plan (1) Acute dehydration Status: Acute Plan: IV HYDRATION, CONTINUE TO MONITOR (2) Acute UTI Status: Acute Plan: LEVAQUIN 750MG IV Q48H, IV HYDRATION, CONTINUE TO MONITOR (3) Acute hyperkalemia Status: Acute Plan: IV HYDRATION
[2018-11-18] MEDS: ASPIRIN EC 81 MG PO SCH (10:36)
[2018-11-18] MEDS: PROTONIX TAB 40 MG PO SCH ×2 (10:37→20:33)
[2018-11-18] MEDS: MIRAPEX TAB 1 MG PO SCH ×2 (10:37→20:33)
[2018-11-18] MEDS: HEMOCYTE-PLUS PO SCH (10:37)
[2018-11-18] MEDS: COLACE CAP 100 MG PO SCH ×2 (10:37→20:33)
[2018-11-18] MEDS: LASIX PO SCH (10:37)
[2018-11-18] MEDS: SINGULAIR TAB 10 MG PO SCH (10:38)
[2018-11-18] MEDS: VSL#3 PO SCH (10:38)
[2018-11-18] MEDS: ELIQUIS PO SCH ×2 (10:39→20:33)
[2018-11-18] MEDS: NEURONTIN CAP 100 MG PO SCH ×2 (10:39→12:47)
[2018-11-18] MEDS: MILK OF MAGNESIA PO SCH ×3 (10:40→17:17)
[2018-11-18] MEDS: ZYLOPRIM PO SCH (10:41)
[2018-11-18] MEDS: FLONASE NASAL SPRAY ENOSTRIL SCH ×2 (10:42→20:37)
[2018-11-18] MEDS: EXELON PATCH 4.6 MG/24 HR TD SCH (10:44)
[2018-11-18] MEDS: ZOFRAN TAB 4 MG PO PRN (11:42)
[2018-11-18] MEDS: NORCO 5/325 MG TAB PO PRN ×2 (15:40→21:46)
[2018-11-18] MEDS: VOLTAREN 1 % GEL MULTI DOSE TUBE TOP PRN (16:00)
[2018-11-18] MEDS: BUTT CREAM (COMPOUND) TOP PRN (17:00)
[2018-11-18] MEDS: ELAVIL PO SCH (20:34)
[2018-11-18] MEDS: NEURONTIN CAP 300 MG PO SCH (20:34)
[2018-11-18] MEDS: XANAX PO SCH (20:34)
[2018-11-18] MEDS: CRESTOR TAB 10 MG PO SCH (20:34)
[2018-11-19] MEDS ORDERED: NS 1/2 1000 ML IV 1,000 ML ONE ×2 (00:15→16:17)
[2018-11-19] MEDS: NS 1/2 1000 ML IV 1,000 ML IV SCH ×2 (00:45→16:20)
[2018-11-19 05:29] LABS: BASOPHILS % (AUTO) 0.8 % (0.2-1.0); EOSINOPHILS # (AUTO) 0.4 x10^3/uL (0.0-0.2); EOSINOPHILS % (AUTO) 7.6 % (0.9-2.9); HEMATOCRIT 28.4 % (36.0-47.0); HEMOGLOBIN 9.4 g/dL (12.0-16.0); LYMPHOCYTES # (AUTO) 1.1 X10^3/uL (1.3-2.9); LYMPHOCYTES % (AUTO) 21.9 % (21.0-51.0); MEAN CORPUSCULAR HEMOGLOBIN 29.3 pg (27.0-34.0); MEAN CORPUSCULAR HGB CONC 33.2 g/dL (33.0-35.0); MEAN CORPUSCULAR VOLUME 88.3 fL (80.0-100.0); MEAN PLATELET VOLUME 8.8 fL (7.4-11.0); MONOCYTES # (AUTO) 0.4 x10^3/uL (0.3-0.8); NEUTROPHILS # (AUTO) 3.2 x10^3/uL (2.2-4.8); NEUTROPHILS % (AUTO) 62.7 % (42.0-75.0); PLATELET COUNT 231 X10^3/uL (150.0-450.0); RED BLOOD COUNT 3.22 X10^6/uL (3.5-5.4); RED CELL DISTRIBUTION WIDTH 14.3 % (11.6-16.5); WHITE BLOOD COUNT 5.2 X10^3/uL (3.6-10.0)
[2018-11-19 05:36] LABS: ALANINE AMINOTRANSFERASE 15 Units/L (12-78); ALBUMIN 2.2 g/dL (3.4-5.0); ALKALINE PHOSPHATASE 123 Units/L (46-116); ASPARTATE AMINO TRANSFERASE 27 Units/L (15-37); BLOOD UREA NITROGEN 17 mg/dL (7-18); CALCIUM 8.5 mg/dL (8.5-10.1); CARBON DIOXIDE 35.5 mmol/L (21-32); CHLORIDE 103 mmol/L (98-107); COR CA(FOR HYPOALB) 9.9 mg/dL (8.5-10.1); CREATININE 0.87 mg/dL (0.55-1.02); SODIUM 139 mmol/L (136-145); TOTAL PROTEIN 6.1 g/dL (6.4-8.2); eGFR NON BLACK RACES > 60 (>60)
--- NOTE | 2018-11-19 06:09 | RAD ---
Examination: AP chest History: SOB Comparison 11/18/2018 Findings: The heart is not significantly enlarged. There is improving subsegmental atelectasis right mid lung. The descending aorta contour and left diaphragm are now partially obscured. Impression: Improving right mid lung atelectasis. Increasing airspace disease left lower lobe consistent with atelectasis/pneumonia. Reported By:
[2018-11-19] MEDS: REGLAN SYRUP 10 MG UDC PO SCH ×4 (06:15→20:36)
[2018-11-19] MEDS: ELIQUIS PO SCH ×2 (08:58→20:38)
[2018-11-19] MEDS: ASPIRIN EC 81 MG PO SCH (08:58)
[2018-11-19] MEDS: COLACE CAP 100 MG PO SCH ×2 (08:58→20:38)
[2018-11-19] MEDS: FLONASE NASAL SPRAY ENOSTRIL SCH ×2 (08:59→20:38)
[2018-11-19] MEDS: HEMOCYTE-PLUS PO SCH (09:00)
[2018-11-19] MEDS: LASIX PO SCH (09:00)
[2018-11-19] MEDS: MIRAPEX TAB 1 MG PO SCH ×2 (09:00→20:36)
[2018-11-19] MEDS: PROTONIX TAB 40 MG PO SCH ×2 (09:01→20:38)
[2018-11-19] MEDS: VSL#3 PO SCH (09:01)
[2018-11-19] MEDS: SINGULAIR TAB 10 MG PO SCH (09:01)
[2018-11-19] MEDS: NEURONTIN CAP 100 MG PO SCH ×2 (09:01→12:30)
[2018-11-19] MEDS: ZYLOPRIM PO SCH (09:02)
[2018-11-19] MEDS: EXELON PATCH 4.6 MG/24 HR TD SCH (09:15)
[2018-11-19] MEDS: DURAGESIC 100 mcg/HR PATCH TD SCH (09:15)
[2018-11-19] MEDS ORDERED: BENTYL CAP 10 MG PO PRN (09:28)
[2018-11-19] MEDS ORDERED: LOVENOX INJ 30 MG SYR SC SCH (10:00)
[2018-11-19] MEDS: LEVSIN/MAALOX/LIDOC VISC PO SCH ×4 (11:04→20:37)
[2018-11-19] MEDS: PEPCID 20 MG IV PREMIX* 20 MG/50 ML BAG IV SCH ×2 (11:05→20:38)
[2018-11-19] MEDS: VOLTAREN 1 % GEL MULTI DOSE TUBE TOP PRN (11:05)
[2018-11-19] MEDS: NORCO 5/325 MG TAB PO PRN ×2 (11:06→17:15)
[2018-11-19] MEDS: LEVAQUIN PREMIX IV 750 MG 750 MG/150 ML BAG IV SCH (13:05)
[2018-11-19] MEDS: XANAX PO SCH (20:36)
[2018-11-19] MEDS: ELAVIL PO SCH (20:36)
[2018-11-19] MEDS: NEURONTIN CAP 300 MG PO SCH (20:36)
[2018-11-19] MEDS: CRESTOR TAB 10 MG PO SCH (20:37)
[2018-11-20] MEDS ORDERED: NS 1/2 1000 ML IV 1,000 ML ONE ×2 (03:12→21:34)
[2018-11-20] MEDS: NS 1/2 1000 ML IV 1,000 ML IV SCH ×2 (03:14→21:35)
[2018-11-20] MEDS: REGLAN SYRUP 10 MG UDC PO SCH ×4 (05:33→21:37)
[2018-11-20 05:35] LABS: BASOPHILS % (AUTO) 0.8 % (0.2-1.0); EOSINOPHILS # (AUTO) 0.3 x10^3/uL (0.0-0.2); EOSINOPHILS % (AUTO) 6.6 % (0.9-2.9); HEMATOCRIT 27.2 % (36.0-47.0); LYMPHOCYTES # (AUTO) 1.3 X10^3/uL (1.3-2.9); LYMPHOCYTES % (AUTO) 24.9 % (21.0-51.0); MEAN CORPUSCULAR HGB CONC 33.1 g/dL (33.0-35.0); MEAN CORPUSCULAR VOLUME 87.6 fL (80.0-100.0); MEAN PLATELET VOLUME 8.8 fL (7.4-11.0); MONOCYTES # (AUTO) 0.4 x10^3/uL (0.3-0.8); NEUTROPHILS # (AUTO) 3.1 x10^3/uL (2.2-4.8); NEUTROPHILS % (AUTO) 60.7 % (42.0-75.0); PLATELET COUNT 219 X10^3/uL (150.0-450.0); RED BLOOD COUNT 3.11 X10^6/uL (3.5-5.4); RED CELL DISTRIBUTION WIDTH 14.7 % (11.6-16.5); WHITE BLOOD COUNT 5.1 X10^3/uL (3.6-10.0)
[2018-11-20 05:47] LABS: ALANINE AMINOTRANSFERASE 14 Units/L (12-78); ALBUMIN 2.1 g/dL (3.4-5.0); ALKALINE PHOSPHATASE 117 Units/L (46-116); ASPARTATE AMINO TRANSFERASE 27 Units/L (15-37); BLOOD UREA NITROGEN 15 mg/dL (7-18); CALCIUM 8.6 mg/dL (8.5-10.1); CARBON DIOXIDE 34.5 mmol/L (21-32); CHLORIDE 104 mmol/L (98-107); COR CA(FOR HYPOALB) 10.1 mg/dL (8.5-10.1); CREATININE 0.88 mg/dL (0.55-1.02); SODIUM 141 mmol/L (136-145); eGFR NON BLACK RACES > 60 (>60)
--- NOTE | 2018-11-20 06:22 | RAD ---
HISTORY: Dyspnea Study: Single-view chest Comparison: November 19, 2018 Findings: There are low lung volumes. The trachea is midline. The cardiac silhouette is unremarkable. There has been near complete resolution of basilar opacities representing resolving atelectasis versus pneumonia there without new lobar mass or consolidation identified. There is no effusion or pneumothorax. The bony thorax is grossly unremarkable. IMPRESSION: Improving radiographic appearance chest. Reported By:
--- NOTE | 2018-11-20 08:22 | PCM.PROG ---
Progress Note - Progress Note for Day of Date of Exam: 11/18/18 - Subjective Subjective: IS BEING TREATED FOR UTI, HYPERKALEMIA, AND DEHYDRATION. TODAY, SHE IS ALERT AND ORIENTED, LYING IN BED ON MORNING ROUNDS. SHE CONTINUES WITH COMPLAINS OF WEAKNESS AND LOWER ABDOMINAL PAIN THIS MORNING. SHE ALSO REPORTS SHORTNESS OF BREATH. ON EXAMINATION, HEART IS REGULAR IN RATE AND RHYTHM. BILATERAL LUNGS ARE NOTED WITH DIMINISHED LUNG SOUNDS THROUGHOUT. ABDOMEN IS ROUND, SOFT, AND NOTED WITH MILD SUPRAPUBIC TENDERNESS. NORMAL BOWEL SOUNDS NOTED IN ALL QUADRANTS. HER VITALS THIS MORNING ARE: 99.0-73-22-100%-109/51. LABS WERE OBTAINED. ABNORMAL LAB VALUES INCLUDE THE FOLLOWING: HGB 10.8, HCT 32.3, CARBON DIOXIDE 33.7, BUN 21, ALK PHOS 132, ALBUMIN 2.5. URINE CULTURE REPORTS GROWTH OF KLEBSIELLA PNEUMONIAE. SHE IS CURRENTLY RECEIVING NS AT 70ML/HR AND LEVAQUIN 750MG IV Q48H. A CHEST XRAY WAS OBTAINED TODAY AND REVEALED: Limited inspiration. Minimal subsegmental atelect asis at both lung bases and mild pneumonitis in the right mid lung projecting above the minor fissure. WE WILL CONTINUE WITH CURRENT PLAN OF CARE TODAY. WE WILL ADD RESPIRATORY TREATMENTS. OTHERWISE, WE WILL FOLLOW UP WITH AM LABS AND CHEST XRAY AND CONTINUE TO MONITOR. - Past Medical Family Social History Past Med/Fam/Surg Hx: No changes since H&P Allergies: Allergies iodine Allergy (Verified 03/01/18 14:56) meloxicam [From Mobic] Allergy (Verified 03/01/18 14:56) penicillin G Allergy (Verified 03/01/18 14:56) prochlorperazine [From Compazine] Allergy (Verified 03/01/18 14:56) Sulfa (Sulfonamide Antibiotics) [SULFA] Allergy (Verified 03/01/18 14:56) - Review of Systems ROS: No change since H&P - Vital Signs and I&O's Vital Signs: Temperature 97.9 F Pulse Rate [Left Brachial] 63 Pulse Rate 68 Respiratory Rate 19 Blood Pressure [Left Arm] 119/60 Blood Pressure [Right Arm] 141/60 Blood Pressure 103/50 O2 Sat by Pulse Oximetry 97 Intake and Output: Intake & Output 11/17/18 11/18/18 11/19/18 11/20/18 11:59 11:59 11:59 11:59 Intake Total 3190 / 3190 2603 / 2603 2950 / 2950 2817 / 2817 Output Total 200 / 200 Balance 3190 / 3190 2603 / 2603 2750 / 2750 2817 / 2817 - Physical Exam Oriented: Person Eyes: Normal Ear: Normal Nose: Normal Throat: Normal Respiratory: Diminished Cardiovascular: Normal. negative: S3, S4, Murmur : Normal Auscultation: Bowel Sounds: Normal Palpation: Normal Tenderness: Normal Skin: Decreased Turgur Musculoskeletal: Right, Left, Knee, Tender, Motor Deficit Psychiatric: Normal Mood Description: Calm Affect: Normal Speech Pattern: Clear, Appropriate - Laboratory and Diagnostics Result Diagrams: 11/20/18 04:11 11/20/18 04:11 Labs: 11/15/18 08:40 Urine,Catheterized Urine Culture - Final Klebsiella Pneumoniae Laboratory WBC 5.1 X10^3/uL (3.6-10.0) 11/20/18 04:11 RBC 3.11 X10^6/uL (3.5-5.4) L 11/20/18 04:11 Hgb 9.0 g/dL (12.0-16.0) L 11/20/18 04:11 Hct 27.2 % (36.0-47.0) L 11/20/18 04:11 MCV 87.6 fL (80.0-100.0) 11/20/18 04:11 MCH 29.0 pg (27.0-34.0) 11/20/18 04:11 MCHC 33.1 g/dL (33.0-35.0) 11/20/18 04:11 RDW 14.7 % (11.6-16.5) 11/20/18 04:11 Plt Count 219 X10^3/uL (150.0-450.0) 11/20/18 04:11 MPV 8.8 fL (7.4-11.0) 11/20/18 04:11 Neut % (Auto) 60.7 % (42.0-75.0) 11/20/18 04:11 Lymph % (Auto) 24.9 % (21.0-51.0) 11/20/18 04:11 [place] % (Auto) 7.0 % (0.0-13.0) 11/20/18 04:11 Eos % (Auto) 6.6 % (0.9-2.9) H 11/20/18 04:11 Baso % (Auto) 0.8 % (0.2-1.0) 11/20/18 04:11 Neut # (Auto) 3.1 x10^3/uL (2.2-4.8) 11/20/18 04:11 Lymph # (Auto) 1.3 X10^3/uL (1.3-2.9) 11/20/18 04:11 [place] # (Auto) 0.4 x10^3/uL (0.3-0.8) 11/20/18 04:11 Eos # (Auto) 0.3 x10^3/uL (0.0-0.2) H 11/20/18 04:11 Baso # (Auto) 0.0 X10^3/uL (0.0-0.1) 11/20/18 04:11 Absolute Nucleated RBC 0.0 /100WBC 11/20/18 04:11 INR Target Range - 11/16/18 05:15 INR 1.32 (0.8-1.3) H 11/16/18 05:15 Sodium 141 mmol/L (136-145) 11/20/18 04:11 Corrected Sodium TNP 11/20/18 04:11 Potassium 4.2 mmol/L (3.5-5.1) 11/20/18 04:11 Chloride 104 mmol/L (98-107) 11/20/18 04:11 Carbon Dioxide 34.5 mmol/L (21-32) H 11/20/18 04:11 BUN 15 mg/dL (7-18) 11/20/18 04:11 Creatinine 0.88 mg/dL (0.55-1.02) 11/20/18 04:11 Est GFR (MDRD) Af Amer > 60 (>60) 11/20/18 04:11 Est GFR (MDRD) Non-Af > 60 (>60) 11/20/18 04:11 Glucose 87 mg/dL (65-99) 11/20/18 04:11 Lactic Acid 0.5 mmol/L (0.4-2.0) 11/15/18 09:06 Calcium 8.6 mg/dL (8.5-10.1) 11/20/18 04:11 Corrected Calcium 10.1 mg/dL (8.5-10.1) 11/20/18 04:11 Magnesium 2.9 mg/dL (1.7-2.9) 11/16/18 05:15 Total Bilirubin 0.10 mg/dL (0.2-1.0) L 11/20/18 04:11 AST 27 Units/L (15-37) 11/20/18 04:11 ALT 14 Units/L (12-78) 11/20/18 04:11 Alkaline Phosphatase 117 Units/L (46-116) H 11/20/18 04:11 Creatine Kinase 38 Units/L (26-192) 11/16/18 05:15 CK-MB (CK-2) < 1.0 ng/mL (0-4.0) 11/16/18 05:15 CK/CKMB % Calc 2.6 % (<4) 11/16/18 05:15 Troponin I < 0.02 ng/mL (0-1.5) 11/16/18 05:15 C-Reactive Protein 30.40 mg/L (0-3.0) H 11/15/18 09:06 Total Protein 6.0 g/dL (6.4-8.2) L 11/20/18 04:11 Albumin 2.1 g/dL (3.4-5.0) L 11/20/18 04:11 Globulin 3.9 g/dL (2.5-4.5) 11/20/18 04:11 Albumin/Globulin Ratio 0.5 Ratio (1.1-2.1) L 11/20/18 04:11 Specimen Type Catherized urine 11/15/18 08:40 Urine Color Yellow (YELLOW) 11/15/18 08:40 Urine Appearance Cloudy (CLEAR) 11/15/18 08:40 Urine pH 5.0 (5.0 - 8.0) 11/15/18 08:40 Ur Specific [place] 1.015 (1.000-1.030) 11/15/18 08:40 Urine Protein 1+ (NEGATIVE) 11/15/18 08:40 Urine Glucose (UA) Negative (NEGATIVE) 11/15/18 08:40 Urine Ketones Negative (NEGATIVE) 11/15/18 08:40 Urine Occult Blood 2+ (NEGATIVE) 11/15/18 08:40 Urine Nitrite Negative (NEGATIVE) 11/15/18 08:40 Urine Bilirubin 1+ (NEGATIVE) 11/15/18 08:40 Urine Urobilinogen Normal (NORMAL) 11/15/18 08:40 Ur Leukocyte Esterase 3+ (NEGATIVE) 11/15/18 08:40 Urine RBC 3-5 /HPF (NONE SEEN) 11/15/18 08:40 Urine WBC 20-30 /HPF (NONE SEEN) 11/15/18 08:40 Ur Squamous Epith Cells Negative /HPF (NEGATIVE) 11/15/18 08:40 Urine Bacteria 3+ /HPF (NEGATIVE) 11/15/18 08:40 Ur Culture Indicated? Yes/culture set up 11/15/18 08:40 - Plan (1) Pneumonia Status: Acute Qualifiers: Pneumonia type: due to unspecified organism Laterality: bilateral Lung location: lower lobe of lung Qualified Code(s): J18.1 - Lobar pneumonia, unspecified organism Plan: IV ANTIBIOTICS, RESPIRATORY TX, CONTINUE TO MONITOR (2) Acute dehydration Status: Acute Plan: IV HYDRATION, CONTINUE TO MONITOR (3) Acute UTI Status: Acute Plan: LEVAQUIN 750MG IV Q48H, IV HYDRATION, CONTINUE TO MONITOR (4) Acute hyperkalemia Status: Acute Plan: IV HYDRATION
[2018-11-20] MEDS: DUONEB 0.5 MG/3 MG NEB SCH ×4 (09:20→21:20)
[2018-11-20] MEDS: PEPCID 20 MG IV PREMIX* 20 MG/50 ML BAG IV SCH ×2 (09:28→21:36)
[2018-11-20] MEDS: PROTONIX TAB 40 MG PO SCH ×2 (09:28→21:37)
[2018-11-20] MEDS: ELIQUIS PO SCH ×2 (09:29→21:36)
[2018-11-20] MEDS: ZYLOPRIM PO SCH (09:29)
[2018-11-20] MEDS: COLACE CAP 100 MG PO SCH ×2 (09:29→21:37)
[2018-11-20] MEDS: SINGULAIR TAB 10 MG PO SCH (09:30)
[2018-11-20] MEDS: ASPIRIN EC 81 MG PO SCH (09:30)
[2018-11-20] MEDS: HEMOCYTE-PLUS PO SCH (09:30)
[2018-11-20] MEDS: MIRAPEX TAB 1 MG PO SCH ×2 (09:30→21:35)
[2018-11-20] MEDS: VSL#3 PO SCH (09:31)
[2018-11-20] MEDS: FLONASE NASAL SPRAY ENOSTRIL SCH ×2 (09:31→21:38)
[2018-11-20] MEDS: LEVSIN/MAALOX/LIDOC VISC PO SCH ×4 (09:31→21:35)
[2018-11-20] MEDS: LASIX PO SCH (09:31)
[2018-11-20] MEDS: NEURONTIN CAP 100 MG PO SCH ×2 (09:32→12:17)
[2018-11-20] MEDS: EXELON PATCH 4.6 MG/24 HR TD SCH (09:33)
[2018-11-20] MEDS: TEMOVATE CREAM TOP SCH ×2 (11:34→22:10)
[2018-11-20] MEDS: XYLOCAINE VISCOUS MT SCH ×2 (11:34→22:11)
--- NOTE | 2018-11-20 21:02 | PCM.PROG ---
Progress Note - Progress Note for Day of Date of Exam: 11/19/18 - Subjective Subjective: IS BEING TREATED FOR UTI, HYPERKALEMIA, AND DEHYDRATION. TODAY, SHE IS ALERT AND ORIENTED, LYING IN BED ON MORNING ROUNDS. SHE CONTINUES WITH COMPLAINS OF WEAKNESS AND LOWER ABDOMINAL PAIN THIS MORNING. SHE ALSO REPORTS SHORTNESS OF BREATH. ON EXAMINATION, HEART IS REGULAR IN RATE AND RHYTHM. BILATERAL LUNGS ARE NOTED WITH DIMINISHED LUNG SOUNDS THROUGHOUT. ABDOMEN IS ROUND, SOFT, AND NOTED WITH MILD SUPRAPUBIC TENDERNESS. NORMAL BOWEL SOUNDS NOTED IN ALL QUADRANTS. HER VITALS THIS MORNING ARE: 98.8-72-14-98%-176/70. LABS WERE OBTAINED. ABNORMAL LAB VALUES INCLUDE THE FOLLOWING: RBC 3.22, HGB 9.4, HCT 28.4, CARBON DIOXIDE 35.5, ALK PHOS 123, TOTAL PROTEIN 6.1, ALBUMIN 2.2. URINE CULTURE REPORTS GROWTH OF KLEBSIELLA PNEUMONIAE. A CHEST XRAY WAS OBTAINED TODAY AND REVEALED: Improving right mid lung atelectasis. Increasing airspace disease left lower lobe consistent with ate lectasis/pneumonia. SHE IS CURRENTLY RECEIVING NS AT 70ML/HR AND LEVAQUIN 750MG IV Q48H. WE WILL CONTINUE WITH CURRENT PLAN OF CARE TODAY. WE WILL ADD LOVENOX 30MG SC BID, PEPCID, GI COCKTAIL, AND BENTYL TODAY. OTHERWISE, WE WILL FOLLOW UP WITH AM LABS AND CHEST XRAY AND CONTINUE TO MONITOR. - Past Medical Family Social History Past Med/Fam/Surg Hx: No changes since H&P Allergies: Allergies iodine Allergy (Verified 03/01/18 14:56) meloxicam [From Mobic] Allergy (Verified 03/01/18 14:56) penicillin G Allergy (Verified 03/01/18 14:56) prochlorperazine [From Compazine] Allergy (Verified 03/01/18 14:56) Sulfa (Sulfonamide Antibiotics) [SULFA] Allergy (Verified 03/01/18 14:56) - Review of Systems ROS: No change since H&P - Vital Signs and I&O's Vital Signs: Temperature 98.4 F Pulse Rate [Left Brachial] 83 Pulse Rate 81 Respiratory Rate 18 Blood Pressure [Left Arm] 140/62 Blood Pressure [Right Arm] 141/60 Blood Pressure 103/50 O2 Sat by Pulse Oximetry 97 Intake and Output: Intake & Output 11/18/18 11/19/18 11/20/18 11/21/18 11:59 11:59 11:59 11:59 Intake Total 2603 / 2603 2950 / 2950 2817 / 2817 1291 / 1291 Output Total 200 / 200 Balance 2603 / 2603 2750 / 2750 2817 / 2817 1291 / 1291 - Physical Exam Oriented: Person Eyes: Normal Ear: Normal Nose: Normal Throat: Normal Respiratory: Diminished Cardiovascular: Normal. negative: S3, S4, Murmur : Normal Auscultation: Bowel Sounds: Normal Tenderness: Normal Skin: Decreased Turgur Musculoskeletal: Right, Left, Knee, Tender, Motor Deficit Psychiatric: Normal Mood Description: Calm Affect: Normal Speech Pattern: Clear, Appropriate - Laboratory and Diagnostics Result Diagrams: 11/20/18 04:11 11/20/18 04:11 Labs: 11/15/18 08:40 Urine,Catheterized Urine Culture - Final Klebsiella Pneumoniae Laboratory WBC 5.1 X10^3/uL (3.6-10.0) 11/20/18 04:11 RBC 3.11 X10^6/uL (3.5-5.4) L 11/20/18 04:11 Hgb 9.0 g/dL (12.0-16.0) L 11/20/18 04:11 Hct 27.2 % (36.0-47.0) L 11/20/18 04:11 MCV 87.6 fL (80.0-100.0) 11/20/18 04:11 MCH 29.0 pg (27.0-34.0) 11/20/18 04:11 MCHC 33.1 g/dL (33.0-35.0) 11/20/18 04:11 RDW 14.7 % (11.6-16.5) 11/20/18 04:11 Plt Count 219 X10^3/uL (150.0-450.0) 11/20/18 04:11 MPV 8.8 fL (7.4-11.0) 11/20/18 04:11 Neut % (Auto) 60.7 % (42.0-75.0) 11/20/18 04:11 Lymph % (Auto) 24.9 % (21.0-51.0) 11/20/18 04:11 [place] % (Auto) 7.0 % (0.0-13.0) 11/20/18 04:11 Eos % (Auto) 6.6 % (0.9-2.9) H 11/20/18 04:11 Baso % (Auto) 0.8 % (0.2-1.0) 11/20/18 04:11 Neut # (Auto) 3.1 x10^3/uL (2.2-4.8) 11/20/18 04:11 Lymph # (Auto) 1.3 X10^3/uL (1.3-2.9) 11/20/18 04:11 [place] # (Auto) 0.4 x10^3/uL (0.3-0.8) 11/20/18 04:11 Eos # (Auto) 0.3 x10^3/uL (0.0-0.2) H 11/20/18 04:11 Baso # (Auto) 0.0 X10^3/uL (0.0-0.1) 11/20/18 04:11 Absolute Nucleated RBC 0.0 /100WBC 11/20/18 04:11 INR Target Range - 11/16/18 05:15 INR 1.32 (0.8-1.3) H 11/16/18 05:15 Sodium 141 mmol/L (136-145) 11/20/18 04:11 Corrected Sodium TNP 11/20/18 04:11 Potassium 4.2 mmol/L (3.5-5.1) 11/20/18 04:11 Chloride 104 mmol/L (98-107) 11/20/18 04:11 Carbon Dioxide 34.5 mmol/L (21-32) H 11/20/18 04:11 BUN 15 mg/dL (7-18) 11/20/18 04:11 Creatinine 0.88 mg/dL (0.55-1.02) 11/20/18 04:11 Est GFR (MDRD) Af Amer > 60 (>60) 11/20/18 04:11 Est GFR (MDRD) Non-Af > 60 (>60) 11/20/18 04:11 Glucose 87 mg/dL (65-99) 11/20/18 04:11 Lactic Acid 0.5 mmol/L (0.4-2.0) 11/15/18 09:06 Calcium 8.6 mg/dL (8.5-10.1) 11/20/18 04:11 Corrected Calcium 10.1 mg/dL (8.5-10.1) 11/20/18 04:11 Magnesium 2.9 mg/dL (1.7-2.9) 11/16/18 05:15 Total Bilirubin 0.10 mg/dL (0.2-1.0) L 11/20/18 04:11 AST 27 Units/L (15-37) 11/20/18 04:11 ALT 14 Units/L (12-78) 11/20/18 04:11 Alkaline Phosphatase 117 Units/L (46-116) H 11/20/18 04:11 Creatine Kinase 38 Units/L (26-192) 11/16/18 05:15 CK-MB (CK-2) < 1.0 ng/mL (0-4.0) 11/16/18 05:15 CK/CKMB % Calc 2.6 % (<4) 11/16/18 05:15 Troponin I < 0.02 ng/mL (0-1.5) 11/16/18 05:15 C-Reactive Protein 30.40 mg/L (0-3.0) H 11/15/18 09:06 Total Protein 6.0 g/dL (6.4-8.2) L 11/20/18 04:11 Albumin 2.1 g/dL (3.4-5.0) L 11/20/18 04:11 Globulin 3.9 g/dL (2.5-4.5) 11/20/18 04:11 Albumin/Globulin Ratio 0.5 Ratio (1.1-2.1) L 11/20/18 04:11 Specimen Type Catherized urine 11/15/18 08:40 Urine Color Yellow (YELLOW) 11/15/18 08:40 Urine Appearance Cloudy (CLEAR) 11/15/18 08:40 Urine pH 5.0 (5.0 - 8.0) 11/15/18 08:40 Ur Specific [place] 1.015 (1.000-1.030) 11/15/18 08:40 Urine Protein 1+ (NEGATIVE) 11/15/18 08:40 Urine Glucose (UA) Negative (NEGATIVE) 11/15/18 08:40 Urine Ketones Negative (NEGATIVE) 11/15/18 08:40 Urine Occult Blood 2+ (NEGATIVE) 11/15/18 08:40 Urine Nitrite Negative (NEGATIVE) 11/15/18 08:40 Urine Bilirubin 1+ (NEGATIVE) 11/15/18 08:40 Urine Urobilinogen Normal (NORMAL) 11/15/18 08:40 Ur Leukocyte Esterase 3+ (NEGATIVE) 11/15/18 08:40 Urine RBC 3-5 /HPF (NONE SEEN) 11/15/18 08:40 Urine WBC 20-30 /HPF (NONE SEEN) 11/15/18 08:40 Ur Squamous Epith Cells Negative /HPF (NEGATIVE) 11/15/18 08:40 Urine Bacteria 3+ /HPF (NEGATIVE) 11/15/18 08:40 Ur Culture Indicated? Yes/culture set up 11/15/18 08:40 - Plan (1) Pneumonia Status: Acute Qualifiers: Pneumonia type: due to unspecified organism Laterality: bilateral Lung location: lower lobe of lung Qualified Code(s): J18.1 - Lobar pneumonia, unspecified organism Plan: IV ANTIBIOTICS, RESPIRATORY TX, CONTINUE TO MONITOR (2) Acute dehydration Status: Acute Plan: IV HYDRATION, CONTINUE TO MONITOR (3) Acute UTI Status: Acute Plan: LEVAQUIN 750MG IV Q48H, IV HYDRATION, CONTINUE TO MONITOR (4) Acute hyperkalemia Status: Acute Plan: IV HYDRATION
[2018-11-20] MEDS: NEURONTIN CAP 300 MG PO SCH (21:36)
[2018-11-20] MEDS: CRESTOR TAB 10 MG PO SCH (21:36)
[2018-11-20] MEDS: XANAX PO SCH (21:36)
[2018-11-20] MEDS: ELAVIL PO SCH (21:37)
[2018-11-21] MEDS: REGLAN SYRUP 10 MG UDC PO SCH (05:33)
[2018-11-21 05:35] LABS: BASOPHILS % (AUTO) 0.8 % (0.2-1.0); EOSINOPHILS # (AUTO) 0.4 x10^3/uL (0.0-0.2); EOSINOPHILS % (AUTO) 6.3 % (0.9-2.9); HEMATOCRIT 27.6 % (36.0-47.0); HEMOGLOBIN 9.2 g/dL (12.0-16.0); LYMPHOCYTES # (AUTO) 1.3 X10^3/uL (1.3-2.9); LYMPHOCYTES % (AUTO) 22.4 % (21.0-51.0); MEAN CORPUSCULAR HEMOGLOBIN 29.2 pg (27.0-34.0); MEAN CORPUSCULAR HGB CONC 33.4 g/dL (33.0-35.0); MEAN CORPUSCULAR VOLUME 87.5 fL (80.0-100.0); MEAN PLATELET VOLUME 8.7 fL (7.4-11.0); MONOCYTES # (AUTO) 0.4 x10^3/uL (0.3-0.8); MONOCYTES % (AUTO) 6.7 % (0.0-13.0); NEUTROPHILS # (AUTO) 3.6 x10^3/uL (2.2-4.8); NEUTROPHILS % (AUTO) 63.8 % (42.0-75.0); PLATELET COUNT 229 X10^3/uL (150.0-450.0); RED BLOOD COUNT 3.15 X10^6/uL (3.5-5.4); RED CELL DISTRIBUTION WIDTH 14.5 % (11.6-16.5); WHITE BLOOD COUNT 5.7 X10^3/uL (3.6-10.0)
[2018-11-21 05:42] LABS: ALANINE AMINOTRANSFERASE 17 Units/L (12-78); ALBUMIN 2.4 g/dL (3.4-5.0); ALKALINE PHOSPHATASE 125 Units/L (46-116); ASPARTATE AMINO TRANSFERASE 33 Units/L (15-37); BLOOD UREA NITROGEN 13 mg/dL (7-18); CALCIUM 8.7 mg/dL (8.5-10.1); CARBON DIOXIDE 32.7 mmol/L (21-32); CHLORIDE 103 mmol/L (98-107); CREATININE 0.83 mg/dL (0.55-1.02); SODIUM 140 mmol/L (136-145); TOTAL PROTEIN 6.4 g/dL (6.4-8.2); eGFR NON BLACK RACES > 60 (>60)
--- NOTE | 2018-11-21 06:53 | RAD ---
HISTORY: Shortness of breath Study: Chest AP portable Comparison: 11/20/2018 Findings: The heart is enlarged. No congestive heart failure is noted. The aorta is calcified and ectatic. The lungs are hypo inflated but clear. The bony thorax is unremarkable. IMPRESSION: Moderate cardiomegaly without congestive heart failure Lungs hypo inflated but clear Reported By:
[2018-11-21] MEDS: ZYLOPRIM PO SCH (08:06)
[2018-11-21] MEDS: COLACE CAP 100 MG PO SCH (08:06)
[2018-11-21] MEDS: ELIQUIS PO SCH (08:07)
[2018-11-21] MEDS: SINGULAIR TAB 10 MG PO SCH (08:07)
[2018-11-21] MEDS: HEMOCYTE-PLUS PO SCH (08:07)
[2018-11-21] MEDS: NEURONTIN CAP 100 MG PO SCH (08:07)
[2018-11-21] MEDS: PROTONIX TAB 40 MG PO SCH (08:07)
[2018-11-21] MEDS: VSL#3 PO SCH (08:07)
[2018-11-21] MEDS: ASPIRIN EC 81 MG PO SCH (08:07)
[2018-11-21] MEDS: MIRAPEX TAB 1 MG PO SCH (08:07)
[2018-11-21] MEDS: EXELON PATCH 4.6 MG/24 HR TD SCH (08:08)
[2018-11-21] MEDS: LASIX PO SCH (08:08)
[2018-11-21] MEDS: LEVSIN/MAALOX/LIDOC VISC PO SCH (08:09)
[2018-11-21] MEDS: PEPCID 20 MG IV PREMIX* 20 MG/50 ML BAG IV SCH (08:09)
[2018-11-21] MEDS: DUONEB 0.5 MG/3 MG NEB SCH ×2 (09:15→12:15)
[2018-11-21] MEDS: VOLTAREN 1 % GEL MULTI DOSE TUBE TOP PRN (09:30)
[2018-11-21] MEDS: TEMOVATE CREAM TOP SCH (09:53)
[2018-11-21] MEDS: FLONASE NASAL SPRAY ENOSTRIL SCH (09:53)
[2018-11-21] MEDS: XYLOCAINE VISCOUS MT SCH (09:54)
[2018-11-21 12:32] VITALS: BP 118/58
== END 2018-11-21 13:35 | DRG 689 ==
LOC: ER 08:01 → ICU 11:45
PROVIDERS: ADMIT Internal Medicine; ATTEND Internal Medicine
DX: E87.5 Hyperkalemia; Y95 Nosocomial condition; J18.8 Other pneumonia, unspecified organism; E86.0 Dehydration; R94.31 Abnormal electrocardiogram [ECG] [EKG]; B96.1 Klebsiella pneumoniae [K. pneumoniae] as the cause of diseases classified elsewhere; I10 Essential (primary) hypertension; M06.80 Other specified rheumatoid arthritis, unspecified site; R26.89 Other abnormalities of gait and mobility; R79.82 Elevated C-reactive protein (CRP); I95.89 Other hypotension; N30.00 Acute cystitis without hematuria; K21.9 Gastro-esophageal reflux disease without esophagitis; R41.82 Altered mental status, unspecified; G89.29 Other chronic pain
CPT/HCPCS: 36415; 51701; 70450; 71010; 71045; 80053; 81001; 82550; 82553; 83605; 83735; 84132; 84484; 85025; 85610; 86140; 87086; 87088; 87186; 93005; 94640; 96365; 96374; 96375; 97110; 97163; 97166; 97530; 99285; A4222; S0028; J0610; J1815; J1956; J3490; J7030; J7613; J7620; S0119; S0181